=== PATIENT | female | born 1930 | race Caucasian/White ===

== ENCOUNTER 2016-08-12 13:54 | Emergency (ER) | payer MEDICARE ==
[~2016-08-12] VITALS: Ht 147.3 cm; Wt 43.0 kg
[~2016-08-12 13:54] MED LIST: ALPR.25 PO; AMIT1TAB79 PO; CHOL50006
[2016-08-12 13:56] VITALS: BP 165/80; PULSE 72; RESP 16; TEMP 98.2; O2SAT 99
[2016-08-12] MEDS ORDERED: SODIUM CHLORIDE 0.9% FLUSH 5 ML FLUSH IVF PRN (14:15)
--- NOTE | 2016-08-12 14:18 | PD ---
HPI Chief Complaint: Fall Time Seen by Provider: 14:10 Travel History International Travel<30 days: No Contact w/Intl Traveler<30days: No Traveled to known affect area: No History of Present Illness HPI The patient was seen and examined in the presence of the nurse. This patient complains of left hip pain. One hour ago at home she tripped and fell and landed on the left hip. She could not get up on her own. She has pain with weightbearing. His history of pelvic fracture in 2013 not requiring surgery. No head injury today. Symptoms severity is moderate. No alleviating factors. Duration 1 hour PFSH Past Medical History Anxiety: Yes High Cholesterol: Yes Diminished Hearing: No Hypertension: Yes ?: Not Past Surgical History Appendectomy: Yes Hysterectomy: Yes Neurologic Surgery: Yes (LAMINECTOMY, CERVICAL FUSION) Social History Alcohol Use: No Tobacco Use: No Substance Use: No Allergies-Medications (Allergen,Severity, Reaction): Coded Allergies: No Known Allergies (Unverified , 08/12/16) Reported Meds & Prescriptions Reported Meds & Active Scripts Active Xanax (Alprazolam) 0.25 Mg Tab 0.25 Mg PO Q4H PRN Elavil (Amitriptyline HCl) 25 Mg Tab 3 Tab PO HS Reported Vitamin D (Cholecalciferol) 5,000 Unit Tab Review of Systems General / Constitutional: No: Fever Eyes: No: Visual changes HENT: No: Headaches Cardiovascular: No: Chest Pain or Discomfort Respiratory: No: Shortness of Breath Gastrointestinal: No: Abdominal Pain Genitourinary: No: Dysuria Musculoskeletal: Positive: Arthralgias, Limited ROM, Pain Skin: No Rash Neurologic: No: Weakness Psychiatric: No: Depression Endocrine: No: Polydipsia Hematologic/Lymphatic: No: Easy Bruising Physical Exam Narrative GENERAL: Well-nourished, well-developed patient with left hip pain . SKIN: Warm and dry. HEAD: Atraumatic. Normocephalic. EYES: Pupils equal and round. No scleral icterus. No injection or drainage. ENT: No nasal bleeding or discharge. Mucous membranes pink and moist. NECK: Trachea midline. No JVD. CARDIOVASCULAR: Regular rate and rhythm. No murmur appreciated. RESPIRATORY: No accessory muscle use. Clear to auscultation. Breath sounds equal bilaterally. GASTROINTESTINAL: Abdomen soft, non-tender, nondistended. Hepatic and splenic margins not palpable. MUSCULOSKELETAL: No obvious deformities. No clubbing. No cyanosis. No edema. There is pain in the left hip with rotation or flexion of the hip. No bruising or deformity. Greater trochanter is tender NEUROLOGICAL: Awake and alert. No obvious cranial nerve deficits. Motor grossly within normal limits. Normal speech. PSYCHIATRIC: Appropriate mood and affect; insight and judgment normal. Data Data Last Documented VS Vital Signs Date Time Temp Pulse Resp B/P Pulse Ox O2 Delivery O2 Flow Rate FiO2 08/12/16 15:19 74 16 189/81 96 Room Air 08/12/16 13:56 98.2 Orders Complete Blood Count With Diff (08/12/16 14:14) Comprehensive Metabolic Panel (08/12/16 14:14) Prothrombin Time / Inr (Pt) (08/12/16 14:14) Act Partial Throm Time (Ptt) (08/12/16 14:14) Chest, Single Ap (08/12/16 14:14) Hip, Uni(Ap&Lat) W Ap Pelvis (08/12/16 14:14) Iv Access Insert/Monitor (08/12/16 14:14) Sodium Chloride 0.9% Flush (Ns Flush) (08/12/16 14:15) Labs Laboratory Tests Test 08/12/16 14:10 White Blood Count 5.5 TH/MM3 Red Blood Count 4.23 MIL/MM3 Hemoglobin 13.0 GM/DL Hematocrit 38.9 % Mean Corpuscular Volume 91.9 FL Mean Corpuscular Hemoglobin 30.8 PG Mean Corpuscular Hemoglobin 33.5 % Concent Red Cell Distribution Width 11.5 % Platelet Count 133 TH/MM3 Mean Platelet Volume 7.3 FL Neutrophils (%) (Auto) 77.6 % Lymphocytes (%) (Auto) 14.1 % Monocytes (%) (Auto) 7.0 % Eosinophils (%) (Auto) 0.7 % Basophils (%) (Auto) 0.6 % Neutrophils # (Auto) 4.3 TH/MM3 Lymphocytes # (Auto) 0.8 TH/MM3 Monocytes # (Auto) 0.4 TH/MM3 Eosinophils # (Auto) 0.0 TH/MM3 Basophils # (Auto) 0.0 TH/MM3 CBC Comment DIFF FINAL Differential Comment Prothrombin Time 11.8 SEC Prothromb Time International 1.1 RATIO Ratio Activated Partial 26.3 SEC Thromboplast Time Sodium Level 139 MEQ/L Potassium Level 4.1 MEQ/L Chloride Level 101 MEQ/L Carbon Dioxide Level 29.7 MEQ/L Anion Gap 8 MEQ/L Blood Urea Nitrogen 25 MG/DL Creatinine 0.96 MG/DL Estimat Glomerular Filtration 56 ML/MIN Rate Random Glucose 120 MG/DL Calcium Level 8.7 MG/DL Total Bilirubin 0.4 MG/DL Aspartate Amino Transf 32 U/L (AST/SGOT) Alanine Aminotransferase 24 U/L (ALT/SGPT) Alkaline Phosphatase 114 U/L Total Protein 7.2 GM/DL Albumin 3.3 GM/DL [facility] Medical Decision Making Medical Screen Exam Complete: Yes Emergency Medical Condition: Yes Medical Record Reviewed: Yes Differential Diagnosis Hip fracture, pelvic fracture, hip dislocation, contusion Narrative Course I have reviewed the patient's electronic medical record. IV placed CBC is normal Metabolic profile is normal Coagulation studies are normal I reviewed her chest x-ray which is normal I reviewed her pelvis x-ray which shows old healed pubic rami fracture but a new posterior nondisplaced left acetabular fracture I reviewed her left hip x-ray shows no hip fracture Case reviewed with orthopedist program evaluation consultant Dr. Prasad Francis. He will see the patient in outpatient follow-up. No indication for inpatient stay or surgery. Patient will use a walker to ambulate and keep weight off the left side. I wrote her pain medication. Diagnosis Primary Impression: Left acetabular fracture Qualified Code: S32.425A - Closed nondisplaced fracture of posterior wall of left acetabulum, initial encounter Additional Instructions: The patient was advised to follow up with Dr. Francis. The patient was warned about potential sedation for the medications they will receive on prescription. Use walker to limit weightbearing on left side Med/Other Pt SpecificInfo: Prescription(s) given Scripts Oxycodone-Acetaminophen (Percocet)5-325 mg Tab1 Tab PO Q6H PRN (PAIN) #25 TAB Ref 0 Prov:Michael Hernandez MD 08/12/16 Disposition: 01 DISCHARGE HOME Condition: Stable Michael Hernandez MD Aug 12, 2016 14:18
[2016-08-12 14:25] LABS: AUTOMATED NEUTROPHIL # 4.3 TH/MM3 (1.8-7.7); BASOPHIL % 0.6 % (0.0-2.0); EOSINOPHIL % 0.7 % (0.0-4.0); HEMATOCRIT 38.9 % (35.0-46.0); HEMO FLAGS DIFF FINAL; LYMPH % 14.1 % (9.0-44.0); LYMPHOCYTE # 0.8 TH/MM3 (1.0-4.8); MEAN CELL VOLUME 91.9 FL (80.0-100.0); MEAN CORPUSCULAR HEMOGLOBIN 30.8 PG (27.0-34.0); MEAN CORPUSCULAR HGB CONC 33.5 % (32.0-36.0); NEUT % 77.6 % (16.0-70.0); PLATELET COUNT 133 TH/MM3 (150-450); RED BLOOD COUNT 4.23 MIL/MM3 (4.00-5.30); RED CELL DISTRIBUTION WIDTH 11.5 % (11.6-17.2); WHITE BLOOD COUNT 5.5 TH/MM3 (4.0-11.0)
[2016-08-12 14:41] LABS: CHLORIDE 101 MEQ/L (98-107); POTASSIUM 4.1 MEQ/L (3.5-5.1); SODIUM (NA) 139 MEQ/L (136-145)
[2016-08-12 14:44] LABS: APTT (PATIENT) 26.3 SEC (24.3-30.1); INTERNATIONAL NORMALIZED RATIO 1.1 RATIO; PROTHROMBIN TIME - PATIENT 11.8 SEC (9.8-11.6)
[2016-08-12 14:46] LABS: ANION GAP 8 MEQ/L (5-15); BICARBONATE 29.7 MEQ/L (21.0-32.0); BLOOD UREA NITROGEN 25 MG/DL (7-18)
[2016-08-12 14:49] LABS: ALT (GPT) 24 U/L (10-53); AST (GOT) 32 U/L (15-37); GLOMERULAR FILTRATION RATE 56 ML/MIN (>89)
[2016-08-12 14:51] LABS: TOTAL BILIRUBIN ADULT 0.4 MG/DL (0.2-1.0)
[2016-08-12 14:52] LABS: ALKALINE PHOSPHATASE 114 U/L (45-117)
--- NOTE | 2016-08-12 14:55 | RADHPO ---
EXAM DATE/TIME: 08/12/2016 14:47 [facility] COMPARISON: No previous studies available for comparison. INDICATIONS : Evaluate lung status. Patient fell today. MEDICAL HISTORY : Osteoporosis. Previous pelvic fracture 1 year ago SURGICAL HISTORY : None. ENCOUNTER: Initial ACUITY: 1 day PAIN SCORE: 0/10 LOCATION: Bilateral chest FINDINGS: A single view of the chest demonstrates the lungs to be symmetrically aerated without evidence of mas s, infiltrate or effusion. The cardiomediastinal contours are unremarkable. Osseous structures are intact. CONCLUSION: Normal examination. Reji Cummings MD on August 12, 2016 at 14:54 Board Certified Radiologist. This report was verified electronically.
--- NOTE | 2016-08-12 15:01 | RADHPO ---
EXAM DATE/TIME: 08/12/2016 14:41 [facility] COMPARISON: No previous studies available for comparison. INDICATIONS: Left hip pain after falling today. MEDICAL HISTORY: Venous insufficiency. Osteoporosis. Previous pelvic fracture 1 year ago SURGICAL HISTORY: None. ENCOUNTER: Initial ACUITY: 1 day PAIN SCORE: 7/10 LOCATION: Left hip. FINDINGS: Four view left hip demonstrate there is a parasagittal fracture through the posterior acetabulum. Th ere are healed fractures of the superior and inferior pubic rami bilaterally. The femoral head and n nelson are unremarkable. The intertrochanteric region is unremarkable. CONCLUSION: Nondisplaced parasagittal fracture through the posterior acetabulum. Old pelvic fractures are healed . Reji Cummings MD on August 12, 2016 at 14:53 Board Certified Radiologist. This report was verified electronically.
[2016-08-12 15:19] VITALS: BP 189/81; PULSE 74; RESP 16; O2SAT 96
[2016-08-12] MEDS ORDERED: PERC5TAB12 PO (15:31)
[2016-08-12] MEDS ORDERED: ACETAMINOPHEN/HYDROcodone 325 MG/5 MG TAB PO ONE (15:45)
[2016-08-12 16:02] VITALS: BP 160/84
[2016-08-15] MEDS ORDERED: ALPR.25 PO (09:26)
[2016-08-20] MEDS ORDERED: AMIT1TAB79 PO (16:12)
[2016-09-18] MEDS ORDERED: ALPR.25 PO (12:08)
[2016-09-22] MEDS ORDERED: AMIT1TAB79 PO (12:08)
[2016-09-22] MEDS ORDERED: ALPR.25 PO (13:21)
[2016-10-22] MEDS ORDERED: ALPR.25 PO (12:08)
[2016-11-20] MEDS ORDERED: ALPR.25 PO (11:56)
[2016-12-25] MEDS ORDERED: ALPR.25 PO (09:36)
== END 2016-08-12 16:33 | disposition home or self-care (01) ==
LOC: PHED 13:54
DX: F41.9 Anxiety disorder, unspecified (principal); E78.00 Pure hypercholesterolemia, unspecified; S32.492A Other specified fracture of left acetabulum, initial encounter for closed fracture; W18.31XA Fall on same level due to stepping on an object, initial encounter; Y93.9 Activity, unspecified; Y92.9 Unspecified place or not applicable; Y99.9 Unspecified external cause status; Y92.009 Unspecified place in unspecified non-institutional (private) residence as the place of occurrence of the external cause
CPT/HCPCS: 71010; 73502; 80053; 85025; 85610; 85730; 99284

== ENCOUNTER 2017-02-18 14:30 | Emergency (ER) | payer MEDICARE ==
[~2017-02-18] VITALS: Ht 149.9 cm; Wt 42.0 kg
[~2017-02-18 14:30] MED LIST changes: -AMIT1TAB79 PO; +AMIT25TA9 PO; +CHOL5000 PO; -CHOL50006
[2017-02-18 14:47] VITALS: BP 187/81; PULSE 71; RESP 16; TEMP 97.8; O2SAT 98
--- NOTE | 2017-02-18 15:15 | PD ---
HPI Chief Complaint: Fall Time Seen by Provider: 15:01 Travel History International Travel<30 days: No Contact w/Intl Traveler<30days: No Traveled to known affect area: No History of Present Illness HPI The patient is a 86-year-old female who presents emergency department for right sided facial pain. The patient states that she fell while getting out of bed at 4:45 AM on Thursday morning. The patient fell 4 striking the right aspect of her face on the corner of a dresser. The patient states she has pain inferior to the right eye with some bruising extends from the nasal bridge down the right aspect of her face to the jaw. The patient states there was no loss of consciousness with the fall and denies any company and headache, neck pain, chest pain, shortness breath, nausea, vomiting, or focal deficits. The patient states her primary physician, Dr. Rivera, recently retired therefore, she presents emergency department for further evaluation. She denies any diplopia or difficulty with extraocular movements. She denies taking any anticoagulants. She does have a history of previous cervical fusion but denies any acute posterior neck pain. Symptoms are mild to moderate, exacerbated after falling, and mostly self alleviating. PFSH Past Medical History Anxiety: Yes High Cholesterol: Yes Diminished Hearing: No Hypertension: Yes Past Surgical History Appendectomy: Yes Hysterectomy: Yes Neurologic Surgery: Yes (LAMINECTOMY, CERVICAL FUSION) Social History Alcohol Use: No Tobacco Use: No Substance Use: No Allergies-Medications (Allergen,Severity, Reaction): Coded Allergies: No Known Allergies (Unverified , 02/18/17) Reported Meds & Prescriptions Reported Meds & Active Scripts Active Xanax (Alprazolam) 0.25 Mg Tab 0.25 Mg PO BID PRN Amitriptyline (Amitriptyline HCl) 25 Mg Tab 75 Mg PO HS Reported Vitamin D3 (Cholecalciferol) 5,000 Unit Cap 5,000 Units PO DIRECTED takes on Mon,Wed, Fri Review of Systems Except as stated in HPI: all other systems reviewed are Neg HENT: Positive: Other (as noted in the history of present illness), No: Headaches Cardiovascular: No: Chest Pain or Discomfort Respiratory: No: Shortness of Breath Gastrointestinal: No: Nausea, Vomiting, Abdominal Pain Neurologic: No: Change in Mentation, Paresthesia, Sensory Disturbance Physical Exam Narrative GENERAL: Awake, alert, pleasant 86-year-old female who appears her stated age and is in no acute respiratory distress. SKIN: Focused skin assessment warm/dry. HEAD: Patient has ecchymosis that goes from the nasal bridge down the right aspect of her face to the right mandible. EYES: Pupils equal and round. Pupils are 3 mm bilateral and reactive. Extraocular muscles are intact. Patient is able to see fingers at a distance of 2 feet without difficulty. ENT: No nasal bleeding or discharge. Mucous membranes pink and moist. No visible septal hematoma. NECK: Trachea midline. No JVD. Well-healed posterior cervical scar. No tenderness. CARDIOVASCULAR: Regular rate and rhythm. No murmur appreciated. RESPIRATORY: No accessory muscle use. Clear to auscultation. Breath sounds equal bilaterally. GASTROINTESTINAL: Abdomen soft, non-tender, nondistended. No rebound tenderness. MUSCULOSKELETAL: No obvious deformities. No clubbing. No cyanosis. No edema. NEUROLOGICAL: Awake and alert. No obvious cranial nerve deficits. Motor grossly within normal limits. Normal speech. Nonfocal. Oriented 4. Follows commands without difficulty. PSYCHIATRIC: Appropriate mood and affect; insight and judgment normal. Data Data Last Documented VS Vital Signs Date Time Temp Pulse Resp B/P Pulse Ox O2 Delivery O2 Flow Rate FiO2 02/18/17 15:18 69 16 98 Room Air 02/18/17 14:47 97.8 187/[address] Facial Bones W/O Iv Cont (02/18/17 ) Ct Brain W/O Iv Contrast(Rout) (02/18/17 ) [facility] Medical Decision Making Medical Screen Exam Complete: Yes Emergency Medical Condition: Yes Medical Record Reviewed: Yes Interpretation(s) Last Impressions Maxillofacial CT 02/18/17 0000 Signed Impressions: Service Date/Time: Saturday, February 18, 2017 15:22 - CONCLUSION: Negative CT scan of facial bones Jaydon Franco MD FACR Head CT 02/18/17 0000 Signed Impressions: Service Date/Time: Saturday, February 18, 2017 15:22 - CONCLUSION: No evidence of acute infarct, hemorrhage, mass or edema. Nathen Schneider MD Differential Diagnosis Differential diagnosis includes fracture, contusion, hematoma, skull fracture, cervical fracture, intracranial hemorrhage. Narrative Course CT of the brain and facial bones was ordered. CT of the facial bones and brain are negative, no evidence of hemorrhage or fracture. The patient is stable for outpatient follow-up with her primary physician. She is advised to return if symptoms worsen or progress. Diagnosis Primary Impression: Traumatic hematoma of face Qualified Code: S00.83XA - Traumatic hematoma of face, initial encounter Patient Instructions: General Instructions Additional Instructions: Please provide a patient a copy of her CT results at discharge. Follow-up with your primary physician. Return if symptoms worsen or progress. Med/Other Pt SpecificInfo: No Change to Meds Disposition: 01 DISCHARGE HOME Condition: Stable Vikram Norris MD Feb 18, 2017 15:15
[2017-02-18] MEDS ORDERED: CHOL5000 PO (15:29)
--- NOTE | 2017-02-18 15:56 | RADRPT ---
EXAM DATE/TIME: 02/18/2017 15:22 [facility] COMPARISON: No previous studies available for comparison. INDICATIONS : Trauma, fall. RADIATION DOSE: 35.37 CTDIvol (mGy) MEDICAL HISTORY : Hypertension. SURGICAL HISTORY : Fusion, cervical. ENCOUNTER: Initial ACUITY: 1 day PAIN SCORE: 5/10 LOCATION: Bilateral facial TECHNIQUE: Volumetric scanning of the facial bones was performed. Using automated exposure contr ol and adjustment of the mA and/or kV according to patient size, radiation dose was kept as low as re asonably achievable to obtain optimal diagnostic quality images. DICOM format image data is availabl e electronically for review and comparison. FINDINGS: ORBITS: The orbital and infraorbital osseous structures are intact. The retroconal structures colon ve a normal configuration. No radiopaque foreign bodies are seen. NASAL BONE: The nasal bone and maxillary spine are intact ZYGOMATIC ARCHES: Symmetric without evidence of fracture. SINUSES: The maxillary, ethmoid and frontal sinuses are intact. No air-fluid levels seen. NASAL CAVITY: The nasal septum is intact and midline. The lacrimal ducts are intact. SOFT TISSUES: No radiopaque foreign bodies seen. No soft-tissue swelling is seen. INTRACRANIAL: No intracranial air seen. CRIBIFORM PLATE: Grossly intact. CONCLUSION: Negative CT scan of facial bones Jaydon Franco MD FACR on February 18, 2017 at 15:47 Board Certified Radiologist. This report was verified electronically.
--- NOTE | 2017-02-18 15:56 | RADRPT ---
EXAM DATE/TIME: 02/18/2017 15:22 [facility] COMPARISON: No previous studies available for comparison. INDICATIONS : Trauma, fall. RADIATION DOSE: 54.77 CTDIvol (mGy) MEDICAL HISTORY : Hypertension. SURGICAL HISTORY : Fusion, cervical. ENCOUNTER: Initial ACUITY: 1 day PAIN SCALE: 0/10 LOCATION: cranial TECHNIQUE: Multiple contiguous axial images were obtained of the head. Using automated exposure control and adj ustment of the mA and/or kV according to patient size, radiation dose was kept as low as reasonably a chievable to obtain optimal diagnostic quality images. DICOM format image data is available electro nically for review and comparison. FINDINGS: CEREBRUM: The ventricles are normal for age. No evidence of midline shift, mass lesion, hemorrhage or acute in farction. No extra-axial fluid collections are seen. POSTERIOR FOSSA: The cerebellum and brainstem are intact. The 4th ventricle is midline. The cerebellopontine angle i s unremarkable. EXTRACRANIAL: The visualized portion of the orbits is intact. SKULL: The calvaria is intact. No evidence of skull fracture. CONCLUSION: No evidence of acute infarct, hemorrhage, mass or edema. Nathen Schneider MD on February 18, 2017 at 15:53 Board Certified Radiologist. This report was verified electronically.
[2017-02-18 16:00] VITALS: BP 180/83; PULSE 74; RESP 16; O2SAT 98
[2017-02-18 16:50] VITALS: BP 179/76
[2017-02-19] MEDS ORDERED: ALPR0.25 PO (11:00)
[2017-03-04] MEDS ORDERED: ALPR.25 PO (15:48)
[2017-03-31] MEDS ORDERED: ALPR.25 PO (08:26)
[2017-03-31] MEDS ORDERED: ALPR.5 PO (09:37)
[2017-04-30] MEDS ORDERED: INFL1INJ53 IM (08:50)
[2017-04-30] MEDS ORDERED: ALPR.5 PO (08:53)
== END 2017-02-18 16:57 | disposition home or self-care (01) ==
LOC: PHED 14:30
DX: S00.83XA Contusion of other part of head, initial encounter (principal); I10 Essential (primary) hypertension; E78.00 Pure hypercholesterolemia, unspecified; Z86.59 Personal history of other mental and behavioral disorders; W01.190A Fall on same level from slipping, tripping and stumbling with subsequent striking against furniture, initial encounter
CPT/HCPCS: 70450; 70486; 99285

== ENCOUNTER 2017-10-29 19:42 | Emergency (ER) | payer MEDICARE ==
[~2017-10-29] VITALS: Ht 147.3 cm; Wt 42.0 kg
[~2017-10-29 19:42] MED LIST changes: -ALPR.25 PO; +ALPR.5 PO
[2017-10-29 19:57] VITALS: BP 196/91; PULSE 70; RESP 18; TEMP 98; O2SAT 97
--- NOTE | 2017-10-29 20:52 | PD ---
HPI Chief Complaint: Bite or Sting Time Seen by Provider: 20:41 Travel History International Travel<30 days: No Contact w/Intl Traveler<30days: No Traveled to known affect area: No History of Present Illness HPI 86-year-old female here for evaluation of dog bite to dorsal aspect of both hands. Injury occurred prior to arrival. She reports neighbor's dog bit her in the hands. She denies altered sensation or weakness of the extremities. She has pain at the site of the counts. Tetanus immunization is not up-to- date. Symptom severity is moderate. No aggravating or alleviating factors. PFSH Past Medical History Anxiety: Yes Depression: Yes High Cholesterol: Yes (takes no meds) Diminished Hearing: No Hypertension: Yes (hx of htn no further problems takes no meds) Immunizations Current: Yes Tetanus Vaccination: Unknown Influenza Vaccination: Yes ?: Not Menopausal: Yes Past Surgical History Appendectomy: Yes Eye Surgery: Yes (cataracts both eye repaired, laser sugery to left eye) Hysterectomy: Yes Neurologic Surgery: Yes (LAMINECTOMY, CERVICAL FUSION) Tonsillectomy: Yes Other Surgery: Yes (right elbow -tendon repair) Social History Alcohol Use: No Tobacco Use: No (quit at age 28 ) Substance Use: No Allergies-Medications (Allergen,Severity, Reaction): Coded Allergies: bacitracin (Verified Allergy, Intermediate, Swelling, 10/29/17) polymyxin B (Verified Allergy, Intermediate, Swelling, 10/29/17) No Known Allergies (Unverified Adverse Reaction, Unknown, 07/31/17) Reported Meds & Prescriptions Reported Meds & Active Scripts Active Xanax (Alprazolam) 0.5 Mg Tab 0.5 Mg PO Q12HR PRN Amitriptyline (Amitriptyline HCl) 25 Mg Tab 75 Mg PO HS Reported Vitamin D3 (Cholecalciferol) 5,000 Unit Cap 5,000 Units PO DIRECTED takes on Mon,Wed, Fri Review of Systems Except as stated in HPI: all other systems reviewed are Neg General / Constitutional: No: Fever Eyes: No: Visual changes HENT: No: Headaches Cardiovascular: No: Chest Pain or Discomfort Respiratory: No: Shortness of Breath Gastrointestinal: No: Abdominal Pain Genitourinary: No: Dysuria Physical Exam Narrative GENERAL: Alert and well-appearing 86-year-old female SKIN: Warm and dry. Multiple abrasions/superficial lacerations to the right hand dorsal aspect with no active bleeding. 1 superficial skin tear/flap lack to the dorsal aspect of the left hand. No active bleeding HEAD: Normocephalic. EYES: No injection or drainage. NECK: Supple CARDIOVASCULAR: Regular rate and rhythm RESPIRATORY: Breath sounds equal bilaterally. No accessory muscle use. GASTROINTESTINAL: Abdomen soft, non-tender, nondistended. MUSCULOSKELETAL: No cyanosis, or edema. See skin note above. Patient has full range of motion and normal sensation in both hands and all digits. Brisk cap refill. Data Data Last Documented VS Vital Signs Date Time Temp Pulse Resp B/P (MAP) Pulse Ox O2 Delivery O2 Flow Rate FiO2 10/29/17 19:57 98.0 70 18 196/91 (126) 97 Orders Orders Tetanus/Diphtheria Tox Adult (Tetanus/Di (10/29/17 21:00) MDM Medical Decision Making Medical Screen Exam Complete: Yes Emergency Medical Condition: Yes Differential Diagnosis Dog bite, abrasion, laceration Narrative Course 86-year-old female here with superficial skin injuries to the dorsal aspect of both hands caused by neighbor's dog. Dog is up-to-date on immunizations. She has full range of motion and normal sensation in both hands and digits. Wounds were thoroughly cleaned. Tetanus immunization updated. Patient started on Augmentin. She is to follow-up with her primary doctor. Diagnosis Primary Impression: Dog bite Qualified Codes: W54.0XXA - Bitten by dog, initial encounter Referrals: Primary Care Physician Additional Instructions: Cleanse the area daily with soap and water. Antibiotics as directed Follow-up with her primary doctor. Scripts Amoxicillin-Clavulanate (Augmentin) 875-125 Mg Tab 1 TAB PO BID for Infection, #20 TAB 0 Refills Prov: Alondra Keane 10/29/17 Disposition: 01 DISCHARGE HOME Condition: Stable Alondra Keane Oct 29, 2017 20:52
[2017-10-29] MEDS ORDERED: AUGM875T3 PO (20:54)
[2017-10-29] MEDS ORDERED: TETANUS/DIPHTHERIA TOXOID ADULT 0.5 ML VIAL IM ONE (21:00)
== END 2017-10-29 21:21 | disposition home or self-care (01) ==
LOC: PHEFT 19:42
DX: S61.451A Open bite of right hand, initial encounter (principal); S61.452A Open bite of left hand, initial encounter; W54.0XXA Bitten by dog, initial encounter; F41.9 Anxiety disorder, unspecified; F32.9 Major depressive disorder, single episode, unspecified; E78.00 Pure hypercholesterolemia, unspecified; I10 Essential (primary) hypertension; Z87.891 Personal history of nicotine dependence; Z23 Encounter for immunization
CPT/HCPCS: 90471; 90714

== ENCOUNTER 2018-05-08 17:50 | Inpatient (IN) ==
--- NOTE | 2018-05-08 18:54 | ED ---
HPI General Chief complaint: Extremity Injury, Upper Stated complaint: Fall/R shoulder inj Time Seen by Provider: 05/08/18 18:12 Source: patient Mode of arrival: ambulatory Limitations: no limitations History of Present Illness HPI narrative: 87-year-old female here with right upper extremity pain. She reports while walking she tripped over uneven pavement falling onto a left flexed knee and injuring the right upper arm. She denies head injury loss of consciousness. She is not anticoagulated. She was able to stand up and walk back to her house and average drive her into the ER. She denies headache, neck pain, chest pain, shortness of breath, abdominal pain, paresthesia or weakness of the extremities. She has pain localized to the left anterior knee, right mid humerus, mild right lateral rib pain. Pain is moderate. Aggravated by range of motion and palpation of the area. No alleviating factors. Related Data Home Medications Medication Instructions Recorded Confirmed alprazolam [Xanax] 0.5 mg PO BID 05/08/18 05/08/18 amitriptyline 25 mg PO TID 05/08/18 05/08/18 lisinopril 20 mg PO DAILY 05/08/18 05/08/18 pravastatin 05/08/18 Allergies Allergy/AdvReac Type Severity Reaction Status Date / Time bacitracin Allergy Intermediate Hives Verified 05/08/18 17:52 Review of Systems ROS: all other systems reviewed are negative [facility] Medical History Medical History Anxiety (Acute) Depression (Acute) HTN (hypertension) (Acute) High cholesterol (Acute) History of hysterectomy (Acute) Surgical History Surgical History H/O spinal fusion (Acute) History of laminectomy (Acute) History of repair of hip fracture (Acute) Social History Social History Substance History: No History of Abuse Smoking Status: Former smoker How Often Do You Have a Drink Containing Alcohol: Never Recent Travel in [facility] within the Last 8 Weeks: No Recent Out of Country Travel within the Last 8 Weeks: No Immunization History Tetanus Immunization: <5 Years Tetanus Immunization Year if Known: 2017 Exam Narrative Exam Narrative: GENERAL: Alert and well-appearing 87-year-old female. SKIN: Focused skin assessment warm/dry. HEAD: Atraumatic. Normocephalic. EYES: Pupils equal and round. EOMI. no injection or drainage. ENT: No nasal bleeding or discharge. Mucous membranes pink and moist. NECK: Trachea midline. No cervical midline tenderness. Freely moves the neck. CARDIOVASCULAR: Regular rate and rhythm. No murmur appreciated. RESPIRATORY: No accessory muscle use. Clear to auscultation. Breath sounds equal bilaterally. GASTROINTESTINAL: Abdomen soft, non-tender, nondistended. Hepatic and splenic margins not palpable. MUSCULOSKELETAL: No clubbing. No cyanosis. Hip/pelvis are stable and nontender. Mild tenderness to the right lateral rib cage. No crepitus or palpable fracture. RUE: Notable swelling/mild deformity to the mid humerus. Range of motion of the shoulder elicit pain. Palpable radial pulse. Distal sensation intact. The elbow, forearm, wrist, hands are nontender. Strong equal hand grasp. LLE: Superficial abrasions and tenderness to the anterior aspect of the knee. Mild swelling. No obvious deformity. Is able to flex and extend the knee without difficulty. Palpable distal pulses. Distal sensation intact. NEUROLOGICAL: Awake and alert. No obvious cranial nerve deficits. Motor grossly within normal limits. Normal speech. PSYCHIATRIC: Appropriate mood and affect; insight and judgment normal. Course Initial Documented Vital Signs Temperature 97.8 F 05/08/18 17:52 Pulse Rate 68 05/08/18 17:52 Respiratory Rate 16 05/08/18 17:52 Blood Pressure 154/71 H 05/08/18 17:52 Pulse Oximetry 100 05/08/18 17:52 Last Documented Vital Signs Temperature 97.8 F 05/08/18 17:52 Pulse Rate 68 05/08/18 17:52 Respiratory Rate 16 05/08/18 17:52 Blood Pressure 154/71 H 05/08/18 17:52 Pulse Oximetry 100 05/08/18 17:52 Medical Decision Making MDM Narrative Medical decision making narrative: 87-year-old female with multiple injuries after she sustained a fall from a standing position. She is neurologically intact. Extremities are neurovascularly intact. Patient refused CT of the brain stating "I do not have my head". X-ray of the left knee reveals nondisplaced lateral tibial plateau fracture. X-ray right shoulder reveal slightly comminuted and displaced humeral neck fracture. X-ray of the chest reveal no rib fracture or pneumothorax. Spoke with on-call orthopedist Dr. Shaw. She request knee immobilizer and nonweightbearing for the left tibial plateau fracture. Sling and swath for the right humeral head fracture. Both injuries are nonsurgical. Given the location of the injuries patient is not ambulatory and will need admission for placement to skilled rehab. Medical Screen Exam Complete: Yes Emergency Medical Condition: Yes Differential Diagnosis Differential Diagnosis: Humerus fracture, rib fracture, pneumothorax, contusions , subdural hematoma Imaging Data Radiologist's impression: Knee X-Ray 05/08/18 18:16 CONCLUSION: Nondisplaced lateral tibial plateau fracture with lipohemarthrosis. Mild to moderate osteoarthritis. Ribs X-Ray 05/08/18 18:16 CONCLUSION: No rib fracture identified. Incidental note made of a proximal humeral fracture on the right. Shoulder X-Ray 05/08/18 18:24 CONCLUSION: Slightly comminuted and displaced humeral neck fracture extending into the humeral head and greater tuberosity. Discharge Plan Discharge Disposition Patient Disposition: 30 Still Patient Discharge Details Diagnosis: Fracture of tibial plateau, Fracture of head of humerus Physicians Team ED Provider: Tr Sexton ED Midlevel Provider: Alondra Keane Primary Care Provider: Opal Carlos Rxs /Orders / Referrals /Forms Prescriptions: No Action pravastatin 40 mg Tablet RF: 0 lisinopril 20 mg Tablet 20 mg PO DAILY RF: 0 alprazolam [Xanax] 0.5 mg Tablet 0.5 mg PO BID RF: 0 amitriptyline 25 mg Tablet 25 mg PO TID RF: 0 Status ED Status: Admitted Observation Patient
--- NOTE | 2018-05-08 19:15 | XR ---
EXAM DATE: 05/08/2018 7:02 PM EDT AGE/SEX: 87 years / Female INDICATIONS: Trauma due to fall. CLINICAL DATA: This is the patient's initial encounter. Patient reports that signs and symptoms have been present for 1 day and indicates a pain score of 4/10. MEDICAL/SURGICAL HISTORY: None. . Cervical fusion. Hysterectomy. COMPARISON: No prior exams available for comparison. FINDINGS: On the oblique view there is a small cortical break in the lateral tibial plateau characteristic of a nondisplaced fracture. Positive lipohemarthrosis. 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 Bones appear osteopenic. CONCLUSION: Nondisplaced lateral tibial plateau fracture with lipohemarthrosis. Mild to moderate osteoarthritis. Electronically signed by: Jordan Durand MD 05/08/2018 7:14 PM EDT
--- NOTE | 2018-05-08 19:18 | XR ---
EXAM DATE: 05/08/2018 7:05 PM EDT AGE/SEX: 87 years / Female INDICATIONS: Humerus fracture due to fall. CLINICAL DATA: This is the patient's initial encounter. Patient reports that signs and symptoms have been present for 1 day and indicates a pain score of 7/10. MEDICAL/SURGICAL HISTORY: None. . Cervical fusion. Hysterectomy. COMPARISON: No prior exams available for comparison. FINDINGS: There is a displaced and angulated proximal humeral fracture with apparent avulsion of the greater tu berosity. CONCLUSION: Slightly comminuted and displaced humeral neck fracture extending into the humeral head and greater t uberosity. Electronically signed by: Jordan Durand MD 05/08/2018 7:17 PM EDT
--- NOTE | 2018-05-08 19:18 | XR ---
EXAM DATE: 05/08/2018 7:03 PM EDT AGE/SEX: 87 years / Female INDICATIONS: Trauma due to fall. CLINICAL DATA: This is the patient's initial encounter. Patient reports that signs and symptoms have been present for 1 day and indicates a pain score of 2/10. MEDICAL/SURGICAL HISTORY: None. . Cervical fusion. Hysterectomy. COMPARISON: [facility], SHOULDER LIMITED RIGHT 2V, 05/08/2018. . FINDINGS: There is no evidence of displaced fracture. No destructive lesions or areas of periosteal thickening are seen. Expiratory view of the chest is negative for pneumothorax. The mediastinal structures ar e midline. CONCLUSION: No rib fracture identified. Incidental note made of a proximal humeral fracture on the right. Electronically signed by: Jordan Durand MD 05/08/2018 7:16 PM EDT
[2018-05-08] MEDS ORDERED: Acetaminophen 325 MG Tablet PO PRN (21:20)
[2018-05-08] MEDS ORDERED: Amitriptyline 25 MG Tablet PO ONE (23:06)
[2018-05-08] MEDS ORDERED: ALPRAZolam 0.5 MG Tablet PO ONE (23:07)
[2018-05-08] MEDS: Lisinopril 20 MG Tablet PO SCH (23:21)
[2018-05-09] MEDS: Lisinopril 20 MG Tablet PO SCH (08:36)
[2018-05-09] MEDS: Amitriptyline 25 MG Tablet PO SCH ×3 (08:36→18:03)
[2018-05-09] MEDS ORDERED: Lisinopril 20 MG Tablet PO SCH (09:00)
--- NOTE | 2018-05-09 11:36 | P.HP ---
History of Present Illness Primary Care Physician: Opal Carlos MD Chief Complaint: Trip and fall History of Present Illness: 87-year-old female with known history of hypertension, hyperlipidemia, anxiety who was brought to the hospital for evaluation of trip and fall. Patient states that she was outside walking and tripped on a uneven pavement and she fell toward the sidewalk landing on her left knee and right outstretched arm she states that she then heard a pop and knew that she broke her arm she fell over to the right side and hitting her head. She does not remember exactly what happened, the next thing she remembers is 2 men were talking to her and telling her not to move. They were going to call 911, however, they contacted her instead who brought her to the hospital for evaluation. Patient did have workup done with x-ray of her shoulder, ribs, knee. Shoulder x-ray does show rather impressive fracture which is comminuted with displacement of the humeral neck. Knee x-ray does show a nondisplaced lateral tibial plateau fracture with lipohemarthrosis. The ER did contact on-call orthopedist who notified them that the patient should be in a leg brace, nonweightbearing. As well as sling and swath of the right upper extremity. It was recommended that the patient be observed in the hospital for long-term facility placement. Upon evaluating the patient this morning, she has had worsening symptoms of her right upper extremity where it is been getting cold where she has to warm it up, she been experiencing paresthesia in the right upper extremity, she states that she has lost function in unable to move her arm and has decreased foreign languages professor strength. Patient denies any visual changes, blurred vision, loss of bowel or bladder control. However is indicated that she is having a hard time being able to start urine stream today. Given the patient's presenting symptoms of closed head injury, possible loss of consciousness, neurological symptoms of the right upper extremity as well as possible urinary retention. Patient will require further workup and neurological monitoring. - Diagnosis (1) Fall from slip, trip, or stumble (2) Closed head injury (3) Loss of consciousness (4) Paresthesia of right upper extremity (5) Fracture of tibial plateau (6) Fracture of head of humerus Review of Systems All other systems reviewed negative except as stated in HPI Genitourinary: Reports difficulty urinating Musculoskeletal: Reports numbness, Reports tingling PMFSH - History History Provided By: Patient - Medical History Medical History: Medical History (Last Reviewed 05/09/18 @ 11:29 by MAN Muñoz) Anxiety Depression HTN (hypertension) High cholesterol History of hysterectomy - Surgical History Surgical History: Surgical History (Last Updated 05/09/18 @ 11:30 by MAN Muñoz) History of cataract surgery H/O spinal fusion History of laminectomy History of repair of hip fracture - Family History Family History: Family History (Last Updated 05/09/18 @ 11:29 by MAN Muñoz) Other No pertinent family history - Tobacco History Second Hand Smoke Exposure: No Tobacco Use In Past 30 Days: Yes Smoking Status: Former smoker Tobacco Type: Cigarettes - Alcohol History How Often Do You Have a Drink Containing Alcohol: Never - Substance Use History Substance History: No History of Abuse - Travel History Recent Travel in the [place] Within the Last 8 Weeks: No Recent Travel Out of the Country Within the Last 8 Weeks: No - Immunization History Tetanus Immunization: <5 Years Tetanus Immunization Year if Known: 2017 Medications and Allergies Active Medications: Active Medications Acetaminophen (Tylenol) 650 mg PO Q4H PRN PRN Reason: Temp > 100.4 Amitriptyline HCl (Elavil) 25 mg PO TID [facility] Last Admin: 05/09/18 08:36 Dose: Not Given Lactulose (Lactulose Liq) 30 ml PO DAILY PRN PRN Reason: SEVERE CONSITIPATION Lisinopril (Prinivil) 20 mg PO DAILY [facility] Last Admin: 05/09/18 08:36 Dose: 20 mg Ondansetron HCl (Zofran Inj) 4 mg IV.PUSH Q6H PRN PRN Reason: NAUSEA OR VOMITING Oxycodone/Acetaminophen (Percocet 5/325 Mg) 1 tab PO Q4H PRN PRN Reason: pain 1 to 10 Last Admin: 05/09/18 08:35 Dose: 1 tab Pravastatin Sodium (Pravachol) 40 mg PO HS [facility] Last Admin: 05/08/18 23:28 Dose: 40 mg Allergies Allergy/AdvReac Type Severity Reaction Status Date / Time bacitracin Allergy Intermediate Hives Verified 05/08/18 17:52 Home Medications Medication Instructions Recorded Confirmed Type alprazolam [Xanax] 0.5 mg PO BID 05/08/18 05/08/18 History amitriptyline 25 mg PO TID 05/08/18 05/08/18 History lisinopril 20 mg PO DAILY 05/08/18 05/08/18 History pravastatin 05/08/18 History Exam Vital signs: Vital Signs 05/08/18 17:52 05/08/18 22:57 05/09/18 04:00 Temperature 97.8 F 97.8 F 97.8 F Pulse Rate 68 73 69 Respiratory Rate 16 20 20 Blood Pressure 154/71 H 176/70 H 120/58 L Pulse Oximetry 100 97 96 05/09/18 08:00 Temperature 97.5 F L Pulse Rate 75 Respiratory Rate 20 Blood Pressure 108/54 L Pulse Oximetry 96 Intake & Output 05/08/18 05/09/18 05/09/18 18:59 06:59 18:59 Intake Total 480 / 480 240 / 240 Output Total 300 / 300 Balance 480 / 480 -60 / -60 Weight 46.2 kg 46.2 kg Intake: Oral 480 / 480 240 / 240 Output: Urine 300 / 300 Other: # Voids 1 Narrative: GENERAL: Well-developed, well-nourished, in no acute distress. alert and orientated HEENT: Head is normocephalic without any lesions or masses noted. Facial features are symmetric. Eyes: Pupils equal round reactive to light. Extraocular muscles are intact. Conjunctivae were clear. Oropharyngeal: Pharynx without any erythema edema. Tongue is midline without deviation. Buccal mucosa is moist without any masses or lesions NECK: Supple without any masses. Trachea midline no deviation. No JVD, no bruits are appreciated CARDIAC: Regular rhythm, regular rate. S1/S2 are heard. No murmurs gallops or rubs. LUNGS: Clear to auscultation bilaterally. No wheeze, rhonchi or rales. No use of accessory muscles on inspiration or expiration. ABDOMEN: Soft, nontender. Nondistended. Bowel sounds heard in all 4 quadrants. No organomegaly or masses. Negative rebound, negative guarding EXTREMITIES: No edema, pulses are equal bilaterally. No cyanosis or clubbing NEUROLOGY: Mood and affect appear appropriate. Cranial nerves II through XII grossly intact. RIGHT UPPER EXTREMITY: Patient's arm is in sling and swath. Patient only has 2/ 5 foreign languages professor strength in the right upper extremity. Hand does feel cold. Pulses are intact. Results - Labs CBC & Chem 7: 05/09/18 12:00 05/09/18 12:00 - Imaging Impressions Knee X-Ray 05/08/18 18:16 CONCLUSION: Nondisplaced lateral tibial plateau fracture with lipohemarthrosis. Mild to moderate osteoarthritis. Ribs X-Ray 05/08/18 18:16 CONCLUSION: No rib fracture identified. Incidental note made of a proximal humeral fracture on the right. Shoulder X-Ray 05/08/18 18:24 CONCLUSION: Slightly comminuted and displaced humeral neck fracture extending into the humeral head and greater tuberosity. Caprini VTE Risk Assessment Caprini VTE Risk Assessment: Moderate/High Risk (score >= 2) Caprini Risk Assessment Model: Point Value = 1 Point Value = 2 Point Value = 3 Point Value = 5 Age 41-60 Minor surgery BMI > 25 kg/m2 Swollen legs Varicose veins or History of unexplained or recurrent spontaneous Oral contraceptives or hormone replacement Sepsis (< 1 month) Serious lung disease, including pneumonia (< 1 month) Abnormal pulmonary function Acute myocardial infarction Congestive heart failure (< 1 month) History of inflammatory bowel disease Medical patient at bed rest Age 61-74 Arthroscopic surgery Major open surgery (> 45 min) Laparoscopic surgery (> 45 min) Malignancy Confined to bed (> 72 hours) Immobilizing plaster cast Central venous access Age >= 75 History of VTE Family history of VTE Factor V Leiden Prothrombin [id number] Lupus anticoagulant Anticardiolipin antibodies Elevated serum homocysteine Heparin-induced thrombocytopenia Other congenital or acquired thrombophilia Stroke (< 1 month) Elective arthroplasty Hip, pelvis, or leg fracture Acute spinal cord injury (< 1 month) Prophylaxis Regimen: Total Risk Factor Score Risk Level Prophylaxis Regimen 0-1 Low Early ambulation 2 Moderate Order ONE of the following: *Sequential Compression Device (SCD) *Heparin 5000 units SQ BID 3-4 Higher Order ONE of the following medications: *Heparin 5000 units SQ TID *Enoxaparin/Lovenox 40 mg SQ daily (WT < 150 kg, CrCl > 30 mL/min) *Enoxaparin/Lovenox 30 mg SQ daily (WT < 150 kg, CrCl > 10-29 mL/min) *Enoxaparin/Lovenox 30 mg SQ BID (WT < 150 kg, CrCl > 30 mL/min) AND/OR *Sequential Compression Device (SCD) 5 or more Highest Order ONE of the following medications: *Heparin 5000 units SQ TID (Preferred with Epidurals) *Enoxaparin/Lovenox 40 mg SQ daily (WT < 150 kg, CrCl > 30 mL/min) *Enoxaparin/Lovenox 30 mg SQ daily (WT < 150 kg, CrCl > 10-29 mL/min) *Enoxaparin/Lovenox 30 mg SQ BID (WT < 150 kg, CrCl > 30 mL/min) AND *Sequential Compression Device (SCD) Assessment and Plan - Assessment (1) Fall from slip, trip, or stumble Code(s): W01.0XXA - Fall on same level from slipping, tripping and stumbling without subsequent striking against object, initial encounter Status: Acute (2) Closed head injury Code(s): S09.90XA - Unspecified injury of head, initial encounter Status: Acute (3) Loss of consciousness Code(s): R40.20 - Unspecified coma Status: Acute (4) Paresthesia of right upper extremity Code(s): R20.2 - Paresthesia of skin Status: Acute (5) Fracture of tibial plateau Code(s): S82.143A - Displaced bicondylar fracture of unspecified tibia, initial encounter for closed fracture Status: Acute (6) Fracture of head of humerus Code(s): S42.293A - Other displaced fracture of upper end of unspecified humerus , initial encounter for closed fracture Status: Acute - Plan Trip and fall on uneven pavement -Patient had associated close head injury with possible loss of consciousness, right humerus fracture, left tibial plateau fracture, patient with urinary retention -We will need further workup to include CT of the head to rule out any acute abnormality, -Patient will require neuro checks -We will need close monitoring for postconcussion syndrome -Initially will obtain x-ray of the lumbar spine -Obtain initial laboratory studies to include CBC, CMP, PT, PTT, urinalysis -Physical therapy evaluation Comminuted displaced right humeral fracture -Neurologically the patient experiencing cold sensation and paresthesia, decreased strength as compared to the left -Patient is vascularly intact at this time with even pulses -We will need to consult orthopedics for further recommendations -Continue pain control Hypertension, hyperlipidemia, anxiety -Continue home medications DVT Prevention -Sequential compression devises (5) Fracture of tibial plateau Qualifiers: Encounter type: initial encounter Fracture type: closed Laterality: left Qualified Code(s): S82.142A - Displaced bicondylar fracture of left tibia, initial encounter for closed fracture (6) Fracture of head of humerus Qualifiers: Encounter type: initial encounter Fracture type: closed Laterality: right Qualified Code(s): S42.291A - Other displaced fracture of upper end of right humerus, initial encounter for closed fracture
[2018-05-09 12:08] LABS: Baso % (Auto) 0.9 % (0.0-2.0); Eos # (Auto) 0.1 th/mm3 (0.0-0.4); Eos % (Auto) 1.1 % (0.0-4.0); Hematocrit 36.3 % (35.0-46.0); Hemoglobin 12.1 gm/dL (11.6-15.3); Lymph # (Auto) 1.2 th/mm3 (1.0-4.8); Lymph % (Auto) 22.7 % (9.0-44.0); Mean Corpuscular HGB Conc 33.2 % (32.0-36.0); Mean Corpuscular Hemoglobin 31.6 pg (27.0-34.0); Mean Platelet Volume 7.7 fL (7.0-11.0); Mono # (Auto) 0.5 th/mm3 (0.0-0.9); Mono % (Auto) 8.7 % (0.0-8.0); Neut # (Auto) 3.5 th/mm3 (1.8-7.7); Neut % (Auto) 66.6 % (16.0-70.0); Platelet Count 135 th/mm3 (150-450); Red Blood Count 3.82 mil/mm3 (4.00-5.30); Red Cell Distribution Width 11.3 % (11.6-17.2); White Blood Count 5.3 th/mm3 (4.0-11.0)
[2018-05-09 12:20] LABS: Chloride 101 meq/L (98-107); Potassium 3.7 meq/L (3.5-5.1); Sodium 139 meq/L (136-145)
[2018-05-09 12:23] LABS: Activated Partial Thrombo Time 24.6 sec (24.3-30.1); INR 1.1 Ratio; Prothrombin Time 11.3 sec (9.8-11.6)
[2018-05-09 12:24] LABS: Albumin 3.2 g/dL (3.4-5.0); Anion Gap 7 meq/L (5-15); Blood Urea Nitrogen 20 mg/dL (7-18); Carbon Dioxide 31.5 meq/L (21.0-32.0); Glucose,Random 124 mg/dL (74-106)
[2018-05-09 12:27] LABS: Alanine Aminotransferase 26 U/L (10-53); Aspartate Aminotransferase 28 U/L (15-37); Glomerular Filtration Rate 56 mL/min (>89)
[2018-05-09 12:29] LABS: Total Protein 6.9 g/dL (6.4-8.2)
[2018-05-09 12:30] LABS: Alkaline Phosphatase 115 U/L (45-117)
--- NOTE | 2018-05-09 17:16 | XR ---
EXAM DATE: 05/09/2018 5:11 PM EDT AGE/SEX: 87 years / Female INDICATIONS: Fall. Low back pain. CLINICAL DATA: This is the patient's subsequent encounter. Patient reports that signs and symptoms h ave been present for 3 days and indicates a pain score of 7/10. MEDICAL/SURGICAL HISTORY: None. None. COMPARISON: No prior exams available for comparison. FINDINGS: There is grade 1 almost grade 2 anterolisthesis of L4 on L5. There is some loss of height of L4 suspe ct on a chronic basis. The patient is osteopenic. There is marked discogenic sclerosis at L4-5. What I see of the sacrum is intact. Mild leftward broad lumbar scoliosis. 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
[2018-05-09 17:45] LABS: Bilirubin,Urine Negative (Negative); Clarity,Urine Clear (Clear); Color,Urine Yellow (Yellw/Straw); Glucose,Urine (UA) Negative (Negative); Leukocyte Esterase,Urine Negative (Negative); Nitrite,Urine Negative (Negative); Urobilinogen,Urine 0.2 mg/dL (Less than 2)
[2018-05-09 17:50] LABS: Collection Time,Urine 1730 hours
[2018-05-09 17:51] LABS: Bacteria,Urine Moderate /hpf; RBC,Urine 0-3 /hpf (0-3); Squamous Epithelial Cell,Urine 0-5 /hpf (0-5); WBC,Urine 0-5 /hpf (0-5)
[2018-05-09] MEDS ORDERED: Chlorhexidine Gluconate 2% 1 Pack (2 Cloths) TOPICAL ONE (21:48)
[2018-05-09] MEDS ORDERED: Metoprolol Tartrate 25 MG Tablet PO ONE (21:48)
[2018-05-09] MEDS ORDERED: Sodium Chlor 0.9% Inj 500 ML IV.SIG SCH (22:00)
[2018-05-10] MEDS: Morphine Inj 4 MG/ML Vial IV.PUSH PRN ×2 (00:26→05:16)
--- NOTE | 2018-05-10 06:48 | P.PNOP ---
Subjective Interval history: She was doing her daily walk of approximately 2 miles. She tripped over uneven sidewalk. She landed on her right shoulder and had pain to her left knee. No other complaints Physical Exam Vital signs: Vital Signs 05/09/18 08:00 05/09/18 12:00 05/09/18 20:00 Temperature 97.5 F L 97.6 F 98.8 F Pulse Rate 75 78 76 Respiratory Rate 20 20 16 Blood Pressure 108/54 L 141/66 H 118/58 L Pulse Oximetry 96 97 93 L 05/09/18 23:13 05/10/18 00:00 05/10/18 00:28 Temperature 98.2 F Pulse Rate 75 Respiratory Rate 18 17 18 Blood Pressure 116/57 L Pulse Oximetry 97 05/10/18 04:00 05/10/18 05:18 Temperature 97.6 F Pulse Rate 67 Respiratory Rate 17 18 Blood Pressure 115/57 L Pulse Oximetry 96 Intake & Output 05/09/18 05/09/18 05/10/18 06:59 18:59 06:59 Intake Total 480 / 480 840 / 840 Output Total 900 / 900 Balance 480 / 480 -60 / -60 Weight 46.2 kg 47.7 kg Intake: Oral 480 / 480 840 / 840 Output: Urine 900 / 900 Other: # Voids 1 2 Weight On Admission 46.2 kg Narrative: Right upper extremity: Pain to palpation of proximal humerus with swelling. Skin is intact. Distally intact sensation with full extension flexion of all fingers. Good capillary refills and distal pulses. Left lower extremity: No pain with hip or ankle range of motion. Pain to palpation of knee with moderate swelling. Knee immobilizer in place. Intact sensation distally with active dorsiflexion and plantarflexion of foot. Results - Labs CBC & Chem 7: 05/09/18 12:00 05/09/18 12:00 Laboratory Results - last 24 hr 05/09/18 05/09/18 05/09/18 12:00 12:00 12:00 CBC w Diff Auto diff final WBC 5.3 RBC 3.82 L Hgb 12.1 Hct 36.3 MCV 95.0 MCH 31.6 MCHC 33.2 RDW 11.3 L Plt Count 135 L MPV 7.7 Neut % (Auto) 66.6 Lymph % (Auto) 22.7 [place] % (Auto) 8.7 H Eos % (Auto) 1.1 Baso % (Auto) 0.9 Neut # (Auto) 3.5 Lymph # (Auto) 1.2 [place] # (Auto) 0.5 Eos # (Auto) 0.1 Baso # (Auto) 0.0 WBC Differential . Differential Comment . PT 11.3 INR 1.1 APTT 24.6 Sodium 139 Potassium 3.7 Chloride 101 Carbon Dioxide 31.5 Anion Gap 7 BUN 20 H Creatinine 0.95 Estimated GFR 56 L Random Glucose 124 H Calcium 9.0 Total Bilirubin 0.5 AST 28 ALT 26 Alkaline Phosphatase 115 Total Protein 6.9 Albumin 3.2 L Ur Collection Type Urine Color Urine Clarity Urine pH Ur Specific [place] Urine Protein Urine Glucose (UA) Urine Ketones Urine Occult Blood Urine Nitrate Urine Bilirubin Urine Urobilinogen Ur Leukocyte Esterase Urine RBC Urine WBC Urine WBC Clumps Ur Squamous Epith Cells Urine Bacteria Micro UA Comment Ur Microscopic Review Urine Culture Comments Urine Collection Time 05/09/18 17:30 CBC w Diff WBC RBC Hgb Hct MCV MCH MCHC RDW Plt Count MPV Neut % (Auto) Lymph % (Auto) [place] % (Auto) Eos % (Auto) Baso % (Auto) Neut # (Auto) Lymph # (Auto) [place] # (Auto) Eos # (Auto) Baso # (Auto) WBC Differential Differential Comment PT INR APTT Sodium Potassium Chloride Carbon Dioxide Anion Gap BUN Creatinine Estimated GFR Random Glucose Calcium Total Bilirubin AST ALT Alkaline Phosphatase Total Protein Albumin Ur Collection Type Clean catch Urine Color Yellow Urine Clarity Clear Urine pH 6.0 Ur Specific [place] 1.010 Urine Protein Negative Urine Glucose (UA) Negative Urine Ketones Negative Urine Occult Blood Negative Urine Nitrate Negative Urine Bilirubin Negative Urine Urobilinogen 0.2 Ur Leukocyte Esterase Negative Urine RBC 0-3 Urine WBC 0-5 Urine WBC Clumps Occasional H Ur Squamous Epith Cells 0-5 Urine Bacteria Moderate H Micro UA Comment Culture indicated Ur Microscopic Review Microscopic reviewed Urine Culture Comments Culture indicated Urine Collection Time 1730 - Imaging Impressions Lumbar Spine X-Ray 05/09/18 00:00 CONCLUSION: 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 Maintain sling and swath Left tibial plateau fracture minimally displaced We will treat this with nonoperative treatment by remaining in the immobilizer and maintaining nonweightbearing with no active leg lifts or quad sets
[2018-05-10] MEDS ORDERED: ceFAZolin 2 GM Premix Inj 2 GM/50 ML PIGGYBACK IV.SIG ONE (06:54)
[2018-05-10] MEDS ORDERED: Lidocaine PF 1% Inj 5 ML Syringe OTHER ONE (07:21)
[2018-05-10] MEDS ORDERED: Succinylcholine Inj 100 MG/5 ML Syringe IV.PUSH ONE (07:21)
[2018-05-10] MEDS ORDERED: Phenylephrine/NS 1000 MCG/10ML Syringe IV.PUSH ONE (07:21)
[2018-05-10] MEDS ORDERED: Post-op Orders (for Pharmacy) OTHER STA (08:30)
[2018-05-10] MEDS ORDERED: Chlorhexidine Gluconate 2% 1 Pack (2 Cloths) TOPICAL SCH (08:33)
[2018-05-10] MEDS ORDERED: Metoprolol Tartrate 25 MG Tablet PO SCH (08:33)
--- NOTE | 2018-05-10 08:34 | P.OP ---
- Preoperative Diagnosis (1) Closed fracture of right proximal humerus (2) Fracture of tibial plateau Date of procedure: 05/10/18 Procedure: Open reduction internal fixation right proximal humerus fracture Anesthesia: GETA Surgeon: Indio Alcala MD Rehabilitation Program Coordinator: PARESH Castelan PA-C The surgical procedure was assisted by my physician assistant corporate secretary. My P.A. presence was necessary throughout this case for the manipulation and positioning of the surgical extremity. My P.A. was assisting me throughout the duration of this procedure. The skill set of a physician assistant corporate secretary was medically necessary to complete this procedure. During the surgical case the surgical elastic knitter hand frame was working at the back table and the physician assistant corporate secretary was directly assisting me. Operation and Findings: Implants used: Synthes Plan of activity: Sling and swath, Details of procedure: Patient was seen and evaluated preoperatively. Patient was found to have a displaced proximal humerus fracture. The risks and benefits of surgical and nonsurgical options were discussed in detail and informed consent was obtained for surgery. Patient was brought to the operating room and placed on or table. IV sedation and GETA were administered by anesthesiologist. Antibiotics were given prior to incision. Operative arm and shoulder were prepped with alcohol followed by Hibiclens and draped usual sterile fashion. Timeout procedure was performed. Procedure began with a 5 inch incision over the anterior shoulder. Cephalic vein was identified. A deltopectoral approach was utilized. The fracture was now visualized. Soft tissue was retracted. A #5 FiberWire suture was placed into the rotator rotator cuff and greater tuberosity. Attention was now turned to reduction. Gentle traction was applied. The humeral shaft was reduced to the humeral head. Fracture was manipulated to achieve excellent reduction. Multiplanar fluoroscopy confirmed well aligned fracture. Multiple K wires were used to hold provisional fixation. A Synthes proximal humerus plate was selected. Plate was provisionally held in place K wires. 3.5 cortical screws were used to compress plate to bone. Fluoroscopy confirmed appropriate plate placement and fracture reduction. Multiple locking screws were now placed in the humeral head. Screws were predrilled and premeasured for appropriate length. Care was taken not to penetrate the articular surface. Additional screws were placed in the humeral shaft. The FiberWire suture was passed through the holes of the plate and sutured to the plate for additional stability. Final fluoroscopy revealed well aligned fracture with well-placed hardware. Wound was thoroughly irrigated. Fascia was closed with #1 Vicryl, subcutaneous tissues closed with 3-0 Vicryl, and skin was closed with beba. Sterile dressings were applied. Patient was placed into a sling. Patient was awakened and transferred to recovery in stable condition. Needle and sponge counts were correct.
--- NOTE | 2018-05-10 08:39 | P.CONOP ---
[facility] Orthopedics Consult Note - [facility] Consult date: 05/10/18 Chief complaint: l tibial plateau fx, r humeral head fx Narrative: Radha is an 87-year-old female who had a fall. She is walking outside. She normally walks about 2 miles a day. She tripped on uneven pavement. She fell forward. She landed on outstretched right arm. She also had left knee pain. She presented to the emergency room where x-rays revealed a right proximal humerus fracture as well as a nondisplaced left tibial plateau fracture. She is currently awake alert and orthopedic floor. Pain is severe with any movement of the shoulder. Pain is improved with rest. She denies dizziness, syncope, loss of consciousness. She denies any shoulder pain or knee pain prior to her fall. She is right-hand dominant. Review of Systems Patient denies fevers, chills, weight loss, headache, visual changes, hearing loss, chest pain, palpitations, shortness of breath, nausea, vomiting, no urinary changes, diarrhea, bowel changes, neck pain, back pain, skin rashes, weakness of extremities, easy bleeding, enlarged lymph nodes, numbness of extremities, anxiety, or depression. She complains of right shoulder pain and mild left knee pain. Patient's social history, past medical history, and family history were reviewed on chart and with patient. [facility] - History History Provided By: Patient - Medical History Medical History: Medical History (Last Reviewed 05/10/18 @ 08:36 by Indio Alcala MD) Anxiety Depression HTN (hypertension) High cholesterol History of hysterectomy - Surgical History Surgical History: Surgical History (Last Reviewed 05/10/18 @ 08:36 by Indio Alcala MD) History of cataract surgery H/O spinal fusion History of laminectomy History of repair of hip fracture - Family History Family History: Family History (Last Reviewed 05/10/18 @ 08:36 by Indio Alcala MD) Other No pertinent family history - Social History I have reviewed the patient's Social History: Yes - Tobacco History Second Hand Smoke Exposure: No Tobacco Use In Past 30 Days: Yes Smoking Status: Former smoker Tobacco Type: Cigarettes - Alcohol History How Often Do You Have a Drink Containing Alcohol: Never - Substance Use History Substance History: No History of Abuse - Travel History Recent Travel in the [facility] Within the Last 8 Weeks: No Recent Travel Out of the Country Within the Last 8 Weeks: No - Immunization History Tetanus Immunization: <5 Years Tetanus Immunization Year if Known: 2016 Hx Influenza Vaccine This Season: Yes Medications and Allergies Active Medications: Active Medications Acetaminophen (Tylenol) 650 mg PO Q4H PRN PRN Reason: Temp > 100.4 Al Hydroxide/Mg Hydroxide (Milk Of Magnesia Liq) 30 ml PO BID PRN PRN Reason: MILD CONSTIPATION Amitriptyline HCl (Elavil) 25 mg PO TID [facility] Last Admin: 05/09/18 18:03 Dose: Not Given Calcium/Vitamin D (Oscal With D 250/125 Mg) 1 tab PO TID [facility] Chlorhexidine Gluconate (Chlorhexidine 2% Cloth) 3 pack TOPICAL POWER BRAKE OPERATOR ONE Stop: 05/10/18 08:34 Diphenhydramine HCl (Benadryl) 25 mg PO Q6H PRN PRN Reason: ITCHING Enoxaparin Sodium (Lovenox Inj) 30 mg SQ Q24H [facility] Ergocalciferol (Vitamin D2) 50,000 unit PO ONCE ONE Stop: 05/10/18 08:31 Lactated Ringer's (Lr 1000 Ml Inj) 1,000 mls @ 30 mls/hr IV.SIG .Q24H [facility] Stop: 05/10/18 21:59 Last Admin: 05/10/18 06:18 Dose: 30 mls/hr Sodium Chloride (Ns Inj) 500 mls @ 30 mls/hr IV.SIG .Q10H [facility] Last Admin: 05/10/18 06:10 Dose: Not Given Cefazolin Sodium 2,000 mg/ (Sodium Chloride) 100 mls @ 200 mls/hr IV.SIG Q8H [facility] Stop: 05/11/18 01:29 Lactated Ringer's (Lr 1000 Ml Inj) 1,000 mls @ 50 mls/hr IV.CONT .Q20H [facility] Lactated Ringer's (Lr 1000 Ml Inj) 1,000 mls @ 30 mls/hr IV.SIG .Q24H [facility] Stop: 05/11/18 08:44 Sodium Chloride (Ns Inj) 500 mls @ 30 mls/hr IV.SIG .Q10H [facility] Lactulose (Lactulose Liq) 30 ml PO DAILY PRN PRN Reason: SEVERE CONSITIPATION Lisinopril (Prinivil) 20 mg PO DAILY [facility] Last Admin: 05/09/18 08:36 Dose: 20 mg Metoprolol Tartrate (Lopressor) 25 mg PO POWER BRAKE OPERATOR ONE Stop: 05/10/18 08:34 Miscellaneous Information ([facility] Post-Op Orders (For Pharmacy)) 0 each OTHER STAT STA Stop: 05/10/18 08:31 Miscellaneous Information ([facility] Nursing Information) 1 each OTHER ONCE ONE Stop: 05/10/18 08:34 Morphine Sulfate (Morphine Inj) 2 mg IV.PUSH Q3H PRN PRN Reason: pain 1 to 10 Last Admin: 05/10/18 05:16 Dose: 2 mg Ondansetron HCl (Zofran Inj) 4 mg IV.PUSH Q6H PRN PRN Reason: NAUSEA OR VOMITING Ondansetron HCl (Zofran Odt) 4 mg PO Q6H PRN PRN Reason: NAUSEA OR VOMITING Oxycodone/Acetaminophen (Percocet 5/325 Mg) 1 tab PO Q4H PRN PRN Reason: pain 1 to 10 Last Admin: 05/09/18 22:43 Dose: 1 tab Povidone Iodine (Betadine 5% Antisepsis Kit) 1 applicatio EACH NARE POWER BRAKE OPERATOR ONE Stop: 05/10/18 08:34 Pravastatin Sodium (Pravachol) 40 mg PO HS [facility] Last Admin: 05/09/18 20:46 Dose: 40 mg Senna/Docusate Sodium (Terese-Colace) 1 tab PO BID [facility] Sennosides (Senokot) 17.2 mg PO BID PRN PRN Reason: Moderate Constipation Sodium Chloride (Ns Flush) 2 ml IV.FLUSH BID [facility] Sodium Chloride (Ns Flush) 2 ml IV.FLUSH PRN PRN PRN Reason: FLUSH AFTER USING IV ACCESS Vitamin D (Vitamin D3) 5,000 unit PO DAILY [facility] Allergies Allergy/AdvReac Type Severity Reaction Status Date / Time bacitracin Allergy Intermediate Hives Verified 05/08/18 17:52 Home Medications Medication Instructions Recorded Confirmed Type alprazolam [Xanax] 0.5 mg PO BID 05/08/18 05/08/18 History amitriptyline 25 mg PO TID 05/08/18 05/08/18 History lisinopril 20 mg PO DAILY 05/08/18 05/08/18 History pravastatin 05/08/18 History Exam Vital signs: Vital Signs 05/09/18 12:00 05/09/18 20:00 05/09/18 23:13 Temperature 97.6 F 98.8 F Pulse Rate 78 76 Respiratory Rate 20 16 18 Blood Pressure 141/66 H 118/58 L Pulse Oximetry 97 93 L 05/10/18 00:00 05/10/18 00:28 05/10/18 04:00 Temperature 98.2 F 97.6 F Pulse Rate 75 67 Respiratory Rate 17 18 17 Blood Pressure 116/57 L 115/57 L Pulse Oximetry 97 96 05/10/18 05:18 Temperature Pulse Rate Respiratory Rate 18 Blood Pressure Pulse Oximetry Intake & Output 05/09/18 05/10/18 05/10/18 18:59 06:59 18:59 Intake Total 840 / 840 600 / 600 Output Total 900 / 900 75 / 75 Balance -60 / -60 525 / 525 Weight 47.7 kg Intake: IV 50 / 50 Ancef 2 GM Premix Inj 2 gm In 50 / 50 50 ml @ 0 mls/hr IV.SIG .K- MED ONE Rx#:[id number] Oral 840 / 840 Anesthesia Amount 550 / 550 Output: Urine 900 / 900 Estimated Blood Loss 75 / 75 Other: # Voids 2 Weight On Admission 46.2 kg Narrative: Patient is a pleasant 87-year-old female. General: Awake and alert. No acute distress. Appears well-developed well- nourished Head: Normocephalic, atraumatic pupils are equal Neck: Soft, nontender, trachea midline Abdomen: Soft, nondistended Examination of right arm reveals pain with any shoulder motion. She has swelling and bruising around the shoulder. She has no tenderness on her elbow, wrist, or fingers.. Skin is intact. Radial pulse is palpable. Normal capillary refill in fingers. Sensation is intact in radial, ulnar, and median nerve distributions. Logistic Specialist strength is +5. No lymphadenopathy noted. Examination of left arm reveals no pain or deformity with shoulder, elbow, or wrist motion. Skin is intact. Radial pulse is palpable. Normal capillary refill in fingers. Sensation is intact in radial, ulnar, and median nerve distributions. Logistic Specialist strength is +5. No lymphadenopathy noted. Examination of left lower extremity reveals no pain or deformity with hip or ankle motion. She has tenderness to palpation around her lateral knee. There is mild swelling of the knee. Skin is intact. Sensation is intact in left foot. Dorsalis pedis pulse is palpable. Normal capillary refill and feet. Thigh and calf compartments are soft. No lymphadenopathy noted. +5 strength of ankle dorsiflexion and plantarflexion. Examination of right lower extremity reveals no pain or deformity with hip, knee , or ankle motion. Skin is intact. Sensation is intact in right foot. Dorsalis pedis pulse is palpable. Normal capillary refill and feet. Thigh and calf compartments are soft. No lymphadenopathy noted. +5 strength of ankle dorsiflexion and plantarflexion. Results - Labs Result Diagrams: 05/09/18 12:00 05/09/18 12:00 Labs: Laboratory Results - last 24 hr 05/09/18 05/09/18 05/09/18 12:00 12:00 12:00 CBC w Diff Auto diff final WBC 5.3 RBC 3.82 L Hgb 12.1 Hct 36.3 MCV 95.0 MCH 31.6 MCHC 33.2 RDW 11.3 L Plt Count 135 L MPV 7.7 Neut % (Auto) 66.6 Lymph % (Auto) 22.7 [place] % (Auto) 8.7 H Eos % (Auto) 1.1 Baso % (Auto) 0.9 Neut # (Auto) 3.5 Lymph # (Auto) 1.2 [place] # (Auto) 0.5 Eos # (Auto) 0.1 Baso # (Auto) 0.0 WBC Differential . Differential Comment . PT 11.3 INR 1.1 APTT 24.6 Sodium 139 Potassium 3.7 Chloride 101 Carbon Dioxide 31.5 Anion Gap 7 BUN 20 H Creatinine 0.95 Estimated GFR 56 L Random Glucose 124 H Calcium 9.0 Total Bilirubin 0.5 AST 28 ALT 26 Alkaline Phosphatase 115 Total Protein 6.9 Albumin 3.2 L Ur Collection Type Urine Color Urine Clarity Urine pH Ur Specific [place] Urine Protein Urine Glucose (UA) Urine Ketones Urine Occult Blood Urine Nitrate Urine Bilirubin Urine Urobilinogen Ur Leukocyte Esterase Urine RBC Urine WBC Urine WBC Clumps Ur Squamous Epith Cells Urine Bacteria Micro UA Comment Ur Microscopic Review Urine Culture Comments Urine Collection Time 05/09/18 17:30 CBC w Diff WBC RBC Hgb Hct MCV MCH MCHC RDW Plt Count MPV Neut % (Auto) Lymph % (Auto) [place] % (Auto) Eos % (Auto) Baso % (Auto) Neut # (Auto) Lymph # (Auto) [place] # (Auto) Eos # (Auto) Baso # (Auto) WBC Differential Differential Comment PT INR APTT Sodium Potassium Chloride Carbon Dioxide Anion Gap BUN Creatinine Estimated GFR Random Glucose Calcium Total Bilirubin AST ALT Alkaline Phosphatase Total Protein Albumin Ur Collection Type Clean catch Urine Color Yellow Urine Clarity Clear Urine pH 6.0 Ur Specific [place] 1.010 Urine Protein Negative Urine Glucose (UA) Negative Urine Ketones Negative Urine Occult Blood Negative Urine Nitrate Negative Urine Bilirubin Negative Urine Urobilinogen 0.2 Ur Leukocyte Esterase Negative Urine RBC 0-3 Urine WBC 0-5 Urine WBC Clumps Occasional H Ur Squamous Epith Cells 0-5 Urine Bacteria Moderate H Micro UA Comment Culture indicated Ur Microscopic Review Microscopic reviewed Urine Culture Comments Culture indicated Urine Collection Time 1730 - Diagnostic results Imaging: Impressions Lumbar Spine X-Ray 05/09/18 00:00 CONCLUSION: 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 Treatment options were discussed with patient including surgical and nonsurgical options. At this point I would recommend nonoperative treatment of her left tibia. I discussed the risk and benefits of surgical and nonsurgical options regarding her right shoulder. She is still quite active for her age. She is right-hand dominant. She would like to maximize her functional outcome. She would like to proceed with surgical intervention. The risk and benefits were explained in depth the patient. All questions were answered. The risk and benefits of surgery were discussed in depth with patient. The risk of surgery include bleeding, infection, injuries to arteries, nerves, or blood vessels, infection, wound complications, nonunion, malunion, painful hardware, and need for further surgery. I also discussed medical complications including blood clots, pneumonia, stroke, heart attack, and . Informed consent was obtained and all questions were answered. N.p.o.--plan on surgery this morning Calcium and vitamin D supplementation Physical therapy consult--nonweightbearing left leg and right arm Follow-up with Dr. Alcala in 2 weeks Hernandez, Rosita Monteiro A mid-level provider in my office (nurse practitioner or physician assistant center manager) may see this patient on follow-up visits and continue to implement the objectives of this plan including: Starting or adjusting medications, injections , cast application, orthotics, brace application, physical therapy, radiological studies (including x-ray, MRI, CT, ultrasound, bone scan), vascular studies, neurologic studies, specialist consultation, and proceeding with surgical management, as appropriate.
[2018-05-10] MEDS ORDERED: fentaNYL Citrate Inj 100 MCG/2 ML Ampul ONE (08:59)
[2018-05-10] MEDS ORDERED: *morphine SULFATE 4 MG/ML PERIprocedure ONLY ONE ×2 (08:59→09:10)
[2018-05-10] MEDS ORDERED: Sodium Chlor 0.9% Inj 500 ML IV.SIG SCH (09:00)
[2018-05-10] MEDS ORDERED: *Meperidine Inj 25 MG/ML Vial PERIprocedural Use ONLY ONE (09:17)
[2018-05-10] MEDS: Amitriptyline 25 MG Tablet PO SCH ×2 (10:51→19:32)
[2018-05-10] MEDS: Senna/Docusate Sodium 8.6/50 MG Tablet PO SCH ×2 (10:52→20:59)
[2018-05-10] MEDS: Lisinopril 20 MG Tablet PO SCH (10:52)
[2018-05-10] MEDS: Calcium/Vitamin D 250/125 MG Tablet PO SCH ×2 (10:52→19:32)
--- NOTE | 2018-05-10 11:37 | XR ---
EXAM DATE: 05/10/2018 10:10 AM EDT AGE/SEX: 87 years / Female INDICATIONS: ORIF right proximal humerus fracture. CLINICAL DATA: This is the patient's subsequent encounter. Patient reports that signs and symptoms h ave been present for 2 days and indicates a pain score of Nonresponsive. MEDICAL/SURGICAL HISTORY: Non-responsive. Non-responsive. COMPARISON: [facility], SHOULDER LIMITED RIGHT 2V, 05/08/2018. . FINDINGS: Multiple views of the right shoulder were obtained intraoperatively using a matrix camera demonstrate placement of a screw plate fixation device transfixing the humeral neck fracture. The fracture fragm ents are in near-anatomic alignment. CONCLUSION: Status post open rigid internal fixation. Electronically signed by: Joshua Castaneda MD 05/10/2018 10:40 AM EDT
--- NOTE | 2018-05-10 14:38 | ECG ---
Date Performed: 05/09/2018 Time Performed: 21:37:25 PTAGE: 87 years EKG: Sinus rhythm MODERATE ST DEPRESSION ABNORMAL ECG NO PREVIOUS TRACING DOCTOR: Long Carlos Interpretating Date/Time 05/10/2018 14:36:51
--- NOTE | 2018-05-10 15:20 | P.PN ---
Subjective Interval history: Follow up for right prox humerus fracture s/p ORIF. Patient is currently resting in bed. No acute concerns. No fever or chills. Physical Exam Vital signs: Vital Signs 05/09/18 20:00 05/09/18 23:13 05/10/18 00:00 Temperature 98.8 F 98.2 F Pulse Rate 76 75 Respiratory Rate 16 18 17 Blood Pressure 118/58 L 116/57 L Pulse Oximetry 93 L 97 05/10/18 00:28 05/10/18 04:00 05/10/18 05:18 Temperature 97.6 F Pulse Rate 67 Respiratory Rate 18 17 18 Blood Pressure 115/57 L Pulse Oximetry 96 05/10/18 08:54 05/10/18 09:00 05/10/18 09:12 Temperature 98.1 F Pulse Rate 74 75 Respiratory Rate 20 22 22 Blood Pressure 162/68 H 149/61 H Pulse Oximetry 99 95 05/10/18 09:15 05/10/18 09:30 05/10/18 09:45 Temperature Pulse Rate 73 71 69 Respiratory Rate 18 23 13 Blood Pressure 144/65 H 160/66 H 142/64 H Pulse Oximetry 94 L 96 96 05/10/18 10:00 05/10/18 10:15 05/10/18 10:30 Temperature Pulse Rate 73 71 69 Respiratory Rate 20 14 12 Blood Pressure 140/63 127/63 128/62 Pulse Oximetry 96 96 96 05/10/18 12:00 Temperature 97.9 F Pulse Rate 77 Respiratory Rate 20 Blood Pressure 134/60 Pulse Oximetry 94 L Intake & Output 05/09/18 05/10/18 05/10/18 18:59 06:59 18:59 Intake Total 840 / 840 600 / 600 Output Total 900 / 900 75 / 75 Balance -60 / -60 525 / 525 Weight 47.7 kg Intake: IV 50 / 50 Ancef 2 GM Premix Inj 2 gm In 50 / 50 50 ml @ 0 mls/hr IV.SIG .STK- [facility] Rx#:[id number] Oral 840 / 840 Anesthesia Amount 550 / 550 Output: Urine 900 / 900 Estimated Blood Loss 75 / 75 Other: # Voids 2 Weight On Admission 46.2 kg Narrative: GENERAL: Alert, NAD. SKIN: Warm and dry. HEAD: Normocephalic. EYES: No scleral icterus. No injection or drainage. NECK: Supple, trachea midline. No JVD or lymphadenopathy. CARDIOVASCULAR: Regular rate and rhythm without murmurs, gallops, or rubs. RESPIRATORY: Breath sounds equal bilaterally. No accessory muscle use. GASTROINTESTINAL: Abdomen soft, non-tender, nondistended. MUSCULOSKELETAL: No cyanosis, or edema. s/o ORIF right humerus. BACK: Nontender without obvious deformity. No CVA tenderness. Results - Labs CBC & Chem 7: 05/09/18 12:00 05/09/18 12:00 Laboratory Results - last 24 hr 05/09/18 17:30 Ur Collection Type Clean catch Urine Color Yellow Urine Clarity Clear Urine pH 6.0 Ur Specific [place] 1.010 Urine Protein Negative Urine Glucose (UA) Negative Urine Ketones Negative Urine Occult Blood Negative Urine Nitrate Negative Urine Bilirubin Negative Urine Urobilinogen 0.2 Ur Leukocyte Esterase Negative Urine RBC 0-3 Urine WBC 0-5 Urine WBC Clumps Occasional H Ur Squamous Epith Cells 0-5 Urine Bacteria Moderate H Micro UA Comment Culture indicated Ur Microscopic Review Microscopic reviewed Urine Culture Comments Culture indicated Urine Collection Time 1730 Microbiology 05/09/18 17:30 Clean Catch Urine Urine Culture - Preliminary Immature growth - reincubate - Imaging Impressions Lumbar Spine X-Ray 05/09/18 00:00 CONCLUSION: 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 - Procedures 05/10/2018 Open reduction internal fixation right proximal humerus fracture Assessment and Plan - Assessment (1) Fall from slip, trip, or stumble Code(s): W01.0XXA - Fall on same level from slipping, tripping and stumbling without subsequent striking against object, initial encounter Status: Acute (2) Closed head injury Code(s): S09.90XA - Unspecified injury of head, initial encounter Status: Acute (3) Loss of consciousness Code(s): R40.20 - Unspecified coma Status: Acute (4) Paresthesia of right upper extremity Code(s): R20.2 - Paresthesia of skin Status: Acute (5) Fracture of tibial plateau Code(s): S82.143A - Displaced bicondylar fracture of unspecified tibia, initial encounter for closed fracture Status: Acute (6) Fracture of head of humerus Code(s): S42.293A - Other displaced fracture of upper end of unspecified humerus , initial encounter for closed fracture Status: Acute - Plan Ms. Palumbo is a pleasant 87-year-old female with known history of hypertension , hyperlipidemia, anxiety who was brought to the hospital for evaluation of trip and fall. X-rays revealed a right proximal humerus fracture as well as a nondisplaced left tibial plateau fracture. Acute right proximal humerus fracture -s/p ORIF -Currently on Percocet, Morphine for pain. -Lovenox for DVT prophylaxis. -Bowel regimen. Hypertension Hyperlipidemia -Continue lisinopril 20 mg daily, pravastatin 40 mg nightly. Full code. Lovenox. (5) Fracture of tibial plateau Qualifiers: Encounter type: initial encounter Fracture type: closed Laterality: left Qualified Code(s): S82.142A - Displaced bicondylar fracture of left tibia, initial encounter for closed fracture (6) Fracture of head of humerus Qualifiers: Encounter type: initial encounter Fracture type: closed Laterality: right Qualified Code(s): S42.291A - Other displaced fracture of upper end of right humerus, initial encounter for closed fracture
[2018-05-10] MEDS ORDERED: ceFAZolin Inj 2,000 MG in Sodium Chlor 0.9% Inj 80 ML IV.SIG SCH (16:00)
--- NOTE | 2018-05-10 17:08 | CT ---
EXAM DATE: 05/10/2018 5:04 PM EDT AGE/SEX: 87 years / Female INDICATIONS: Trauma, fall. CLINICAL DATA: This is the patient's initial encounter. Patient reports that signs and symptoms have been present for 1 day and indicates a pain score of 0/10. MEDICAL/SURGICAL HISTORY: Hypertension. Hysterectomy. RADIATION DOSE: 44.85 CTDI (mGy) COMPARISON: [facility], CT FACIAL BONES W/O CONTRAST, 02/18/2017. . TECHNIQUE: CT of the head without contrast. Using automated exposure control and adjustment of the mA and/or kV according to patient size, radiation dose was kept as low as reasonably achievable to ob tain optimal diagnostic quality images. DICOM format image data is available electronically for revi ew and comparison. FINDINGS: Cerebrum: The ventricles are normal for age. No evidence of midline shift, mass lesion, hemorrhage or acute infarction. No extraaxial fluid collections are seen. Posterior Fossa: The cerebellum and brainstem are intact. The 4th ventricle is midline. The cerebe llopontine angle is unremarkable. Extracranial: The visualized portion of the orbits is intact. Skull: The calvaria is intact. No evidence of skull fracture. CONCLUSION: 1. Negative CT Head non contrast. . Electronically signed by: Mor Garcia MD 05/10/2018 5:06 PM EDT
--- NOTE | 2018-05-10 17:16 | CT ---
EXAM DATE: 05/10/2018 5:07 PM EDT AGE/SEX: 87 years / Female INDICATIONS: Right shoulder pain status post right shoulder surgery. CLINICAL DATA: This is the patient's initial encounter. Patient reports that signs and symptoms have been present for 1 day and indicates a pain score of 7/10. MEDICAL/SURGICAL HISTORY: Hypertension. Hysterectomy. right shoulder surgery RADIATION DOSE: 9.26 CTDI (mGy) COMPARISON: [facility], SHOULDER COMPLETE RIGHT, 05/10/2018. . TECHNIQUE: Multiple contiguous axial images were acquired using a multirow detector CT scanner witho ut contrast. Multiplanar reconstruction was performed in the sagittal and coronal planes. Using aut omated exposure control and adjustment of the mA and/or kV according to patient size, radiation dose was kept as low as reasonably achievable to obtain optimal diagnostic quality images. DICOM format i mage data is available electronically for review and comparison. FINDINGS: Extensive postsurgical changes are noted screw plate fixation device transfixing the right humeral fr acture. There is streak artifact with obscuration of these regions. There is surrounding soft tissue swelling as well as gas which extends into the axilla and along the right lateral chest wall. The pat ient is noted to be status post cervical fusion. There is a normal glenohumeral relationship. There is a ill-defined low density apparent fluid collection along the lateral posterior shoulder milly suring approximately 11 Hounsfield units in density. This measures up to approximately 7.4 x 3.1 cm i n diameter. The chromic clavicular joint is intact with small gas bubble as well. CONCLUSION: 1. Large ill-defined low-density apparent fluid collection along the lateral posterior shoulder whic h could represent a hematoma and/or seroma. 2. Status post open rigid internal fixation of right shoulder fracture with screw plate fixation dev ice. There is moderate streak artifact. 3. The glenohumeral joint and acromioclavicular joint are intact. 4. Subcutaneous emphysema with gas extending the lateral chest wall consistent with postsurgical bonnie nge. Electronically signed by: Joshua Castaneda MD 05/10/2018 5:15 PM EDT
--- NOTE | 2018-05-10 17:53 | CT ---
EXAM DATE: 05/10/2018 5:42 PM EDT AGE/SEX: 87 years / Female INDICATIONS: Right shoulder pain status post right shoulder surgery. CLINICAL DATA: This is the patient's initial encounter. Patient reports that signs and symptoms have been present for 1 day and indicates a pain score of 7/10. MEDICAL/SURGICAL HISTORY: Hypertension. Hysterectomy. right shoulder surgery RADIATION DOSE: . CTDI (mGy) ; Reconstructed from previous dataset, no dose COMPARISON: No prior exams available for comparison. TECHNIQUE: The data was post processed with a variety of visualization algorithms including full vol ume maximum intensity projection, multi-planar sliding thin slab reformation, curved planar reformati on, and surface rendering techniques. Using automated exposure control and adjustment of the mA and/ or kV according to patient size, radiation dose was kept as low as reasonably achievable to obtain op timal diagnostic quality images. DICOM format image data is available electronically for review and comparison. FINDINGS: 3-D reconstructions of the shoulder were obtained and again demonstrate a screw plate fixation device transfixing the proximal humeral fracture. The fracture fragments appear in near-anatomic alignment. There is moderate streak artifact from the metal hardware. CONCLUSION: 1. 3-D reconstructions. Electronically signed by: Joshua Castaneda MD 05/10/2018 5:52 PM EDT
[2018-05-10] MEDS ORDERED: Enoxaparin Inj 30 MG/0.3 ML Syringe SQ SCH (21:00)
[2018-05-10] MEDS ORDERED: ALPRAZolam 0.5 MG Tablet PO SCH (21:30)
[2018-05-10] MEDS: ceFAZolin Inj 2,000 MG in Sodium Chlor 0.9% Inj 80 ML IV.SIG SCH (21:32)
[2018-05-11] MEDS: ceFAZolin Inj 2,000 MG in Sodium Chlor 0.9% Inj 80 ML IV.SIG SCH ×2 (04:37→14:03)
--- NOTE | 2018-05-11 06:35 | P.PNOP ---
Subjective Interval history: s/p left proximal tibia fx POD 1 s/p ORIF right proximal humerus doing well. states pain is better. Physical Exam Vital signs: Vital Signs 05/10/18 08:54 05/10/18 09:00 05/10/18 09:12 Temperature 98.1 F Pulse Rate 74 75 Respiratory Rate 20 22 22 Blood Pressure 162/68 H 149/61 H Pulse Oximetry 99 95 05/10/18 09:15 05/10/18 09:30 05/10/18 09:45 Temperature Pulse Rate 73 71 69 Respiratory Rate 18 23 13 Blood Pressure 144/65 H 160/66 H 142/64 H Pulse Oximetry 94 L 96 96 05/10/18 10:00 05/10/18 10:15 05/10/18 10:30 Temperature Pulse Rate 73 71 69 Respiratory Rate 20 14 12 Blood Pressure 140/63 127/63 128/62 Pulse Oximetry 96 96 96 05/10/18 12:00 05/10/18 16:00 05/10/18 19:32 Temperature 97.9 F 97.8 F Pulse Rate 77 72 Respiratory Rate 20 18 18 Blood Pressure 134/60 121/74 Pulse Oximetry 94 L 97 05/10/18 20:00 05/10/18 21:44 05/10/18 23:38 Temperature 98.9 F 97.8 F Pulse Rate 75 79 Respiratory Rate 18 18 17 Blood Pressure 144/67 H 131/62 Pulse Oximetry 95 96 Intake & Output 05/10/18 05/10/18 05/11/18 06:59 18:59 06:59 Intake Total 840 / 840 1200 / 1200 Output Total 75 / 75 Balance 765 / 765 1200 / 1200 Weight 47.7 kg Intake: IV 50 / 50 1200 / 1200 LR 1000 mL Inj 1,000 ML @ 50 1000 / 1000 mls/hr IV.CONT .Q20H [facility] Rx#: [id number] Ancef 2 GM Premix Inj 2 gm In 50 / 50 50 ml @ 0 mls/hr IV.SIG .STK- [facility] Rx#:[id number] Ancef Inj 2,000 MG In NS Inj 80 200 / 200 ML @ 200 mls/hr IV.SIG Q8H [facility] Rx#:[id number] Oral 240 / 240 Anesthesia Amount 550 / 550 Output: Estimated Blood Loss 75 / 75 Other: # Voids 2 1 # Bowel Movements 0 Weight On Admission 46.2 kg Narrative: LLE: +CKS. nvi distally. compartments soft RUE: dressings clean and dry. intact. NVI. +sling Results - Labs CBC & Chem 7: 05/09/18 12:00 05/09/18 12:00 Microbiology 05/09/18 17:30 Clean Catch Urine Urine Culture - Preliminary Immature growth - reincubate - Imaging Impressions 3D Reconstruction 05/10/18 00:00 CONCLUSION: 1. 3-D reconstructions. Head CT 05/10/18 00:00 CONCLUSION: 1. Negative CT Head non contrast. . Shoulder CT 05/10/18 00:00 CONCLUSION: 1. Large ill-defined low-density apparent fluid collection along the lateral posterior shoulder which could represent a hematoma and/or seroma. 2. Status post open rigid internal fixation of right shoulder fracture with screw plate fixation device. There is moderate streak artifact. 3. The glenohumeral joint and acromioclavicular joint are intact. 4. Subcutaneous emphysema with gas extending the lateral chest wall consistent with postsurgical change. Shoulder X-Ray 05/10/18 00:00 CONCLUSION: Status post open rigid internal fixation. - Procedures 05/10/2018 Open reduction internal fixation right proximal humerus fracture Assessment and Plan - Assessment and Plan 1) Left Proximal Tibia Fx - nonop 2) Right Proximal Humerus Fx s/p ORIF - POD 1 -NWB -daily dressing changes with xeroform/primapore on POD 2 -sling/swathe -pendulums -CM for rehab placement. -f[facility] with [facility] Monitoring Database has been queried and verified prior to prescribing the controlled substance. Acute pain exception. This patient has normal, predicted, physiological, and time limited response to an adverse mechanical stimulus associated with surgery, trauma, or acute illness as described in my notes. There is a lack of alternative treatment options other than to include the prescribed narcotic treatment for this condition.
[2018-05-11 08:24] VITALS: RESP 16
[2018-05-11] MEDS: Lisinopril 20 MG Tablet PO SCH (09:50)
[2018-05-11] MEDS: Calcium/Vitamin D 250/125 MG Tablet PO SCH ×2 (09:50→14:03)
[2018-05-11] MEDS: Senna/Docusate Sodium 8.6/50 MG Tablet PO SCH (09:51)
--- NOTE | 2018-05-11 09:51 | P.PN ---
Physical Exam Vital signs: Vital Signs 05/10/18 10:00 05/10/18 10:15 05/10/18 10:30 Temperature Pulse Rate 73 71 69 Respiratory Rate 20 14 12 Blood Pressure 140/63 127/63 128/62 Pulse Oximetry 96 96 96 05/10/18 12:00 05/10/18 16:00 05/10/18 19:32 Temperature 97.9 F 97.8 F Pulse Rate 77 72 Respiratory Rate 20 18 18 Blood Pressure 134/60 121/74 Pulse Oximetry 94 L 97 05/10/18 20:00 05/10/18 21:44 05/10/18 23:38 Temperature 98.9 F 97.8 F Pulse Rate 75 79 Respiratory Rate 18 18 17 Blood Pressure 144/67 H 131/62 Pulse Oximetry 95 96 05/11/18 08:00 Temperature 98.4 F Pulse Rate 82 Respiratory Rate 16 Blood Pressure 145/69 H Pulse Oximetry 94 L Intake & Output 05/10/18 05/11/18 05/11/18 18:59 06:59 18:59 Intake Total 840 / 840 1680 / 1680 Output Total 75 / 75 Balance 765 / 765 1680 / 1680 Weight 47.7 kg Intake: IV 50 / 50 1200 / 1200 LR 1000 mL Inj 1,000 ML @ 50 1000 / 1000 mls/hr IV.CONT .Q20H [facility] Rx#: [id number] Ancef 2 GM Premix Inj 2 gm In 50 / 50 50 ml @ 0 mls/hr IV.SIG .STK- [facility] Rx#:[id number] Ancef Inj 2,000 MG In NS Inj 80 200 / 200 ML @ 200 mls/hr IV.SIG Q8H [facility] Rx#:[id number] Oral 240 / 240 480 / 480 Anesthesia Amount 550 / 550 Output: Estimated Blood Loss 75 / 75 Other: # Voids 1 4 # Bowel Movements 0 0 Results - Labs CBC & Chem 7: 05/09/18 12:00 05/09/18 12:00 Microbiology 05/09/18 17:30 Clean Catch Urine Urine Culture - Final 50-100,000 cfu/mL mixed randell (probable contaminants ) - Imaging Impressions 3D Reconstruction 05/10/18 00:00 CONCLUSION: 1. 3-D reconstructions. Head CT 05/10/18 00:00 CONCLUSION: 1. Negative CT Head non contrast. . Shoulder CT 05/10/18 00:00 CONCLUSION: 1. Large ill-defined low-density apparent fluid collection along the lateral posterior shoulder which could represent a hematoma and/or seroma. 2. Status post open rigid internal fixation of right shoulder fracture with screw plate fixation device. There is moderate streak artifact. 3. The glenohumeral joint and acromioclavicular joint are intact. 4. Subcutaneous emphysema with gas extending the lateral chest wall consistent with postsurgical change. Shoulder X-Ray 05/10/18 00:00 CONCLUSION: Status post open rigid internal fixation. - Procedures 05/10/2018 Open reduction internal fixation right proximal humerus fracture Assessment and Plan - Assessment (1) Fall from slip, trip, or stumble Code(s): W01.0XXA - Fall on same level from slipping, tripping and stumbling without subsequent striking against object, initial encounter Status: Acute (2) Closed head injury Code(s): S09.90XA - Unspecified injury of head, initial encounter Status: Acute (3) Loss of consciousness Code(s): R40.20 - Unspecified coma Status: Acute (4) Paresthesia of right upper extremity Code(s): R20.2 - Paresthesia of skin Status: Acute (5) Fracture of tibial plateau Code(s): S82.143A - Displaced bicondylar fracture of unspecified tibia, initial encounter for closed fracture Status: Acute (6) Fracture of head of humerus Code(s): S42.293A - Other displaced fracture of upper end of unspecified humerus , initial encounter for closed fracture Status: Acute - Plan Ms. Palumbo is a pleasant 87-year-old female with known history of hypertension , hyperlipidemia, anxiety who was brought to the hospital for evaluation of trip and fall. X-rays revealed a right proximal humerus fracture as well as a nondisplaced left tibial plateau fracture. Acute right proximal humerus fracture -s/p ORIF -Currently on Percocet, Morphine for pain. -Lovenox for DVT prophylaxis. -Bowel regimen. Hypertension Hyperlipidemia -Continue lisinopril 20 mg daily, pravastatin 40 mg nightly. Full code. Lovenox. (5) Fracture of tibial plateau Qualifiers: Encounter type: initial encounter Fracture type: closed Laterality: left Qualified Code(s): S82.142A - Displaced bicondylar fracture of left tibia, initial encounter for closed fracture (6) Fracture of head of humerus Qualifiers: Encounter type: initial encounter Fracture type: closed Laterality: right Qualified Code(s): S42.291A - Other displaced fracture of upper end of right humerus, initial encounter for closed fracture
[2018-05-11 12:34] VITALS: BP 126/60; PULSE 74; TEMP 98.3; O2SAT 93
--- NOTE | 2018-05-11 14:46 | P.DS ---
Date of admission: 05/09/18 11:11 Primary care physician: Opal Carlos MD Anticipated date of discharge: 05/11/18 Brief History from admission: 87-year-old female with known history of hypertension, hyperlipidemia, anxiety who was brought to the hospital for evaluation of trip and fall. Patient states that she was outside walking and tripped on a uneven pavement and she fell toward the sidewalk landing on her left knee and right outstretched arm she states that she then heard a pop and knew that she broke her arm she fell over to the right side and hitting her head. She does not remember exactly what happened, the next thing she remembers is 2 men were talking to her and telling her not to move. They were going to call 911, however, they contacted her instead who brought her to the hospital for evaluation. Patient did have workup done with x-ray of her shoulder, ribs, knee. Shoulder x-ray does show rather impressive fracture which is comminuted with displacement of the humeral neck. Knee x-ray does show a nondisplaced lateral tibial plateau fracture with lipohemarthrosis. The ER did contact on-call orthopedist who notified them that the patient should be in a leg brace, nonweightbearing. As well as sling and swath of the right upper extremity. It was recommended that the patient be observed in the hospital for group home facility placement. Upon evaluating the patient this morning, she has had worsening symptoms of her right upper extremity where it is been getting cold where she has to warm it up, she been experiencing paresthesia in the right upper extremity, she states that she has lost function in unable to move her arm and has decreased greenhouse manager strength. Patient denies any visual changes, blurred vision, loss of bowel or bladder control. However is indicated that she is having a hard time being able to start urine stream today. Given the patient's presenting symptoms of closed head injury, possible loss of consciousness, neurological symptoms of the right upper extremity as well as possible urinary retention. Patient will require further workup and neurological monitoring. Patient update on day of discharge: Patient is doing well. No acute concerns. Going to [facility] today. DS: Diagnosis - Discharge Diagnosis (1) Fall from slip, trip, or stumble Status: Acute (2) Closed head injury Status: Acute (3) Loss of consciousness Status: Acute (4) Paresthesia of right upper extremity Status: Acute (5) Fracture of tibial plateau Status: Acute (6) Fracture of head of humerus Status: Acute DS: Medications - Discharge Medications Prescriptions: hydrocodone-acetaminophen [[place]] 1 tab PO Q4H #40 tab rivaroxaban [Xarelto] 10 mg PO DAILY #14 tab DS: Summary Hospital Course: Ms. Palumbo is a pleasant 87-year-old female with known history of hypertension , hyperlipidemia, anxiety who was brought to the hospital for evaluation of trip and fall. X-rays revealed a right proximal humerus fracture as well as a nondisplaced left tibial plateau fracture. Patient underwent ORIF right proximal humerus on 05/10/2018. Patient received physical therapy and continued to do well. She was evaluated by [facility] and subsequently discharged to [facility] on 05/11/2018. On the day of discharge we discussed regarding patient 's anxiety. She has significant anxiety for which she takes alprazolam 0.5 mg nightly at 10PM and amitriptyline at night as well. She reports taking amitriptyline 75 mg all at once at 8 PM. We started patient on 50 mg amitriptyline at 8 PM. Patient is being discharged to [facility] on 05/11/2018. - Time Spent with Patient Total time spent providing and/or coordinating discharge services: Less than 30 minutes - Quality: VTE Deep Vein Thrombosis/Pulmonary Embolism Present on Admission: No Exam Vital signs: Vital Signs 05/10/18 16:00 05/10/18 19:32 05/10/18 20:00 Temperature 97.8 F 98.9 F Pulse Rate 72 75 Respiratory Rate 18 18 18 Blood Pressure 121/74 144/67 H Pulse Oximetry 97 95 05/10/18 21:44 05/10/18 23:38 05/11/18 08:00 Temperature 97.8 F 98.4 F Pulse Rate 79 82 Respiratory Rate 18 17 16 Blood Pressure 131/62 145/69 H Pulse Oximetry 96 94 L 05/11/18 12:00 Temperature 98.3 F Pulse Rate 74 Respiratory Rate 16 Blood Pressure 126/60 Pulse Oximetry 93 L Intake & Output 05/10/18 05/11/18 05/11/18 18:59 06:59 18:59 Intake Total 840 / 840 1680 / 1680 Output Total 75 / 75 Balance 765 / 765 1680 / 1680 Weight 47.7 kg Intake: IV 50 / 50 1200 / 1200 LR 1000 mL Inj 1,000 ML @ 50 1000 / 1000 mls/hr IV.CONT .Q20H [facility]ANCO Rx#: [id number] Ancef 2 GM Premix Inj 2 gm In 50 / 50 50 ml @ 0 mls/hr IV.SIG .STK- MED ONE Rx#:[id number] Ancef Inj 2,000 MG In NS Inj 80 200 / 200 ML @ 200 mls/hr IV.SIG Q8H FRANCO Rx#:[id number] Oral 240 / 240 480 / 480 Anesthesia Amount 550 / 550 Output: Estimated Blood Loss 75 / 75 Other: # Voids 1 4 Date of Last Bowel Movement 05/09/18 # Bowel Movements 0 0 Results Procedures completed during hospitalization: Open reduction internal fixation right proximal humerus fracture 05/10/2018. - Impressions ITS Impressions Knee X-Ray 05/08/18 18:16 CONCLUSION: Nondisplaced lateral tibial plateau fracture with lipohemarthrosis. Mild to moderate osteoarthritis. Ribs X-Ray 05/08/18 18:16 CONCLUSION: No rib fracture identified. Incidental note made of a proximal humeral fracture on the right. 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 3-D reconstructions. Head CT 05/10/18 00:00 CONCLUSION: 1. Negative CT Head non contrast. . Shoulder CT 05/10/18 00:00 CONCLUSION: 1. Large ill-defined low-density apparent fluid collection along the lateral posterior shoulder which could represent a hematoma and/or seroma. 2. Status post open rigid internal fixation of right shoulder fracture with screw plate fixation device. There is moderate streak artifact. 3. The glenohumeral joint and acromioclavicular joint are intact. 4. Subcutaneous emphysema with gas extending the lateral chest wall consistent with postsurgical change. Shoulder X-Ray 05/10/18 00:00 CONCLUSION: Status post open rigid internal fixation. Discharge Plan - Discharge Disposition Patient Disposition: [facility] Inpatient - Discharge Condition Condition: Good - Discharge Order Discharge Orders: Discharge Order (Routine); Ordered 05/11/18 Ordered By: Lily Kinney - Discharge Details Anticipated Discharge Date: 05/11/18 - Physicians Team Primary Care Provider: Opal Carlos Attending Provider: Lily Kinney Other Providers: Hilda Vernon MD ; Idnio Alcala MD
[2018-05-11] MEDS ORDERED: Amitriptyline 25 MG Tablet PO SCH (20:00)
[2018-05-11] MEDS ORDERED: ALPRAZolam 0.5 MG Tablet PO SCH (22:00)
== END 2018-05-11 16:00 ==
LOC: PHEDA 17:50 → PHEFT 17:50 → PH3 22:10 → PHEFT 22:11 → PH3 22:30 → N06 05-09 21:23
PROVIDERS: ADMIT Hospitalist; ATTEND Hospitalist